=== PATIENT | female | born 1940 | race African-American/Black ===

== ENCOUNTER 2017-05-10 01:56 | Inpatient (IN) | payer MEDICARE, MEDICAID ==
[2017-05-10] VITALS (7 sets, daily range): BP systolic 120–163; BP diastolic 50–72
[~2017-05-10] VITALS: Ht 162.6 cm; Wt 79.4 kg
[~2017-05-10 01:56] MED LIST: AMLODIPINE BESYL5 MG ORAL; ARICEPT5 MG ORAL; CYMBALTA60 MG ORAL; FLORANEX TABLE1 EAC1 PO; GABAPENTIN300 MG ORAL; METOPROLOL TART25 MG ORAL
[2017-05-10] MEDS ORDERED: Pantoprazole Inj IVP ONE (02:00)
--- NOTE | 2017-05-10 02:07 | Emergency Room Report ---
History of Present Illness General Chief Complaint: Vomiting Source: Medical Record, EMS Present Illness HPI HPI limited d/t patient's known dementia Per EMS/SNF, patient with coffee ground emesis today Patient denies knowledge of this Denies abd pain, dark stool, blood in stool Has no complaints Allergies: Coded Allergies: SULFONYLUREAS (Verified Allergy, Mild, 07/24/16) DIAZEPAM (Unverified Allergy, Unknown, 07/24/16) SULFA (SULFONAMIDE ANTIBIOTICS) (Unverified Allergy, Unknown, 07/24/16) Patient History Limited by: age, medical condition Past Medical History: DM, HTN, dementia Past Surgical History: unable to obtain Pertinent Family History: unable to obtain Social History: Denies: smoking, alcohol use, drug use Now: No Immunizations: UTD Reviewed Nursing Documentation: PMH: Agreed, PSxH: Agreed Nursing Documentation-PMH Hx Cardiac Problems: Yes Hx Hypertension: Yes Hx Asthma: No Hx Cancer: Yes - MULTIPLE MYELOMA Hx Gastrointestinal Problems: Yes - GTUBE History Of Psychiatric Problem: Yes - DEMENTIA,DEPRESSION,SCHIZO Hx Neurological Problems: Yes Hx Dementia: Yes Review of Systems All Other Systems: negative except mentioned in HPI Physical Exam Vital Signs Date Time Temp Pulse Resp B/P (MAP) Pulse Ox O2 Delivery O2 Flow Rate FiO2 05/10/17 01:44 97.9 78 16 140/82 97 Room Air Sp02 EP Interpretation: reviewed, normal General Appearance: normal inspection, well appearing, no apparent distress, alert, GCS 15, non-toxic Head: normocephalic, atraumatic Eyes: bilateral eye PERRL, bilateral eye EOMI ENT: normal ENT inspection, hearing grossly normal, normal voice Neck: normal inspection, full range of motion, supple, no bony tend Respiratory: normal inspection, lungs clear, normal breath sounds, no respiratory distress, no retraction, no wheezing Cardiovascular #1: regular rate, rhythm, no edema Gastrointestinal: normal inspection, normal bowel sounds, non tender, soft, no guarding, no hernia Genitourinary: no CVA tenderness Musculoskeletal: normal inspection, back normal, normal range of motion, Zulay' s Sign negative Neurologic: normal inspection, alert, oriented x3, responsive, farm hand III-XII nml as tested, motor strength/tone normal, speech normal Psychiatric: normal inspection, judgement/insight normal, mood/affect normal Skin: normal inspection, normal color, no rash Lymphatic: normal inspection Medical Decision Making Medicare Attestation I Christel Rodriguez MD hereby attest that the medical record entry for date of service, 05/10/17 accurately reflects signatures/notations that I made in my capacity as MD when I treated/diagnosed the above listed Medicare beneficiary. I attest that this information is true, accurate and complete to the best of my knowledge. I understand that any falsification, omission, or concealment of material fact may subject me to administrative, civil, or criminal liability. This patient warrants hospital admission for extreme of age and has a condition that cannot be treated as outpatient. Diagnostic Impression: Primary Impression: Coffee ground emesis ER Course Alleged coffee-ground emesis from SNF VSS. Afebrile No emesis or hematemesis here Abd soft, NT/ND Labs: No leuks. H&h stable. Platelets normal CXR no PNA, infiltrate IV Protonix given in ED Endorsed for med/surg admit to Dr Limon at 332am EKG Diagnostic Results Rate: normal Rhythm: NSR ST Segments: no acute changes ASA given to the pt in ED: No Rhythm Strip Diag. Results EP Interpretation: yes Rate: 86 Rhythm: NSR, no PVC's, no ectopy Last Vital Signs Date Time Temp Pulse Resp B/P (MAP) Pulse Ox O2 Delivery O2 Flow Rate FiO2 05/10/17 01:44 97.9 78 16 140/82 97 Room Air Status: improved Disposition: ADMITTED INPATIENT Condition: Serious CHRISTEL RODRIGUEZ M.D. May 10, 2017 02:07
[2017-05-10 02:59] LABS: EOSINOPHILS % (AUTO) 1.4 % (0.0-3.0); LYMPHOCYTES % (AUTO) 25.6 % (20.0-45.0); MEAN CORPUSCULAR HEMOGLOBIN 27.5 PG (27.0-31.0); MEAN CORPUSCULAR HGB CONC 31.3 G/DL (32.0-36.0); MEAN CORPUSCULAR VOLUME 88 FL (80-99); MONOCYTES % (AUTO) 8.7 % (1.0-10.0); NEUTROPHILS % (AUTO) 63.4 % (45.0-75.0); PLATELET COUNT 256 K/UL (150-450); RED BLOOD COUNT 5.01 M/UL (4.20-5.40); RED CELL DISTRIBUTION WIDTH 15.3 % (11.6-14.8); WHITE BLOOD COUNT 6.9 K/UL (4.8-10.8)
[2017-05-10 03:17] LABS: ALANINE AMINOTRANSFERASE 9 U/L (3-33); ANION GAP 19 (5-15); ASPARTATE AMINO TRANSFERASE 21 U/L (5-40); CALCIUM 9.8 mg/dL (8.6-10.2); CARBON DIOXIDE 23 mEQ/L (20-30); CHLORIDE 102 mEQ/L (98-107); CREATININE 0.7 mg/dL (0.5-0.9); HEMOLYSIS 4; LIPASE 8 U/L (< 60); POTASSIUM 3.4 mEQ/L (3.4-4.9); SODIUM 144 mEQ/L (135-145)
[2017-05-10 03:18] LABS: INR 1.2 (0.9-1.1); PROTHROMBIN TIME 12.9 SEC (9.30-11.50)
[2017-05-10] MEDS ORDERED: RISPERDAL0.25 MG ORAL (03:45)
[2017-05-10] MEDS ORDERED: ZOLOFT25 MG ORAL (03:45)
[2017-05-10 05:51] LABS: KETONES,URINE 4+ (NEGATIVE); LEUKOCYTE ESTERASE ,URINE 3+ (NEGATIVE); NITRITE,URINE NEGATIVE (NEGATIVE); PH,URINE 6 (4.5-8.0); PROTEIN,URINE 2+ (NEGATIVE); UROBILINOGEN,URINE 1 MG/DL (0.0-1.0)
[2017-05-10 05:59] LABS: APPEARANCE,URINE CLOUDY; BACTERIA,URINE FEW /HPF; SQUAMOUS EPITHELIAL CELL,UR MODERATE /LPF (NONE/OCC); WBC,URINE TNTC /HPF (0 - 2)
[2017-05-10 06:00] LABS: ICTOTEST NEGATIVE; YEAST,URINE MODERATE /HPF
--- NOTE | 2017-05-10 11:26 | Diagnostic Imaging Report ---
Indication: Dyspnea Comparison: 07/25/16 A single view chest radiograph was obtained. Findings: Right chest port again noted. Cardiomegaly is stable. Mild basilar densities are present probably atelectasis. Lung volumes are low bilaterally. In pression: Suspected basilar atelectasis. Followup recommended
[2017-05-10] MEDS: Donepezil 5mg Tab ORAL SCH (11:40)
[2017-05-10] MEDS: DULoxetine 30mg cap ORAL SCH (11:40)
[2017-05-10] MEDS: Metoprolol Tartrate 12.5mg TAB ORAL SCH (11:41)
--- NOTE | 2017-05-10 11:41 | Diagnostic Imaging Report ---
Indication: Abdominal pain Comparison: None Single view of the abdomen obtained Findings: Bowel gas pattern is nonspecific. No mass, ectopic calcifications, or abnormal gas collections are identified. The bones are osteopenic. Lumbar laminectomy noted at multiple levels. Sacroiliac and bilateral hip joint osteoarthritis noted.. Impression: No acute findings
--- NOTE | 2017-05-10 13:24 | History and Physical ---
History of Present Illness General Date patient seen: May 10, 2017 Time patient seen: 13:24 Reason for Hospitalization: Coffee-ground emesis, blood in stool, concern for upper GI bleed Present Illness HPI 75 y/o female with pmh of HTN, pre-diabetes, dementia with psychosis, dysphagia s/p PEG tube but now removed who presents from SNF with coffee-ground emesis and blood in stool. Per custodial report, pt w/ episodes of coffee-ground emesis on day of presentation as well as some blood in stool. No reports of f/c , d/c, chest pain, SOB, abd pain, dysuria. In ED, pt HDS. Initial hgb stable at 13. Pt given protonix 80mg IV bolus. Allergies: Coded Allergies: SULFONYLUREAS (Verified Allergy, Mild, 07/24/16) DIAZEPAM (Unverified Allergy, Unknown, 07/24/16) SULFA (SULFONAMIDE ANTIBIOTICS) (Unverified Allergy, Unknown, 07/24/16) Medication History Scheduled Amlodipine Besylate* (Amlodipine Besylate*), 5 MG ORAL DAILY, (Reported) Donepezil Hcl* (Aricept*), 5 MG ORAL DAILY, (Reported) Duloxetine Hcl* (Cymbalta*), 60 MG ORAL DAILY, (Reported) Gabapentin* (Gabapentin*), 300 MG ORAL BEDTIME, (Reported) Metoprolol Tartrate* (Metoprolol Tartrate*), 6.25 MG ORAL DAILY, (Reported) Risperidone* (Risperdal*), 0.25 MG ORAL DAILY, (Reported) Sertraline Hcl* (Zoloft*), 25 MG ORAL DAILY, (Reported) Miscellaneous Medications Acidophilus/Bulgaricus (Floranex Tablet), 1 EACH PO, (Reported) Patient History History Provided By: Patient, Medical Record, EMS, PMD Healthcare decision maker Resuscitation status Advanced Directive on File unknown if PT has an advanced directives Past Medical/Surgical History Past Medical/Surgical History: (1) Pre-diabetes (2) HTN (hypertension) (3) Dementia with psychosis Family History Family History: Patient reports no known family medical history. Social History Social History: (1) lives at [facility] Review of Systems Constitutional: Reports: no symptoms Eye: Reports: no symptoms ENT: Reports: no symptoms Respiratory: Reports: no symptoms Cardiovascular: Reports: no symptoms Gastrointestinal: Reports: nausea, vomiting Genitourinary: Reports: no symptoms Musculoskeletal: Reports: no symptoms Skin: Reports: no symptoms Psychiatric: Reports: no symptoms Neurological: Reports: no symptoms Endocrine: Reports: no symptoms Hematologic/Lymphatic: Reports: no symptoms Physical Exam Physical Exam Narrative General: alert, cooperative, no distress, appears stated age Head: normocephalic, without obvious abnormality, atraumatic Eyes: conjunctivae/corneas clear. PERRL, EOM's intact Throat: lips, mucosa, and tongue normal. MMM Neck: supple, symmetrical, trachea midline, and no JVD Lungs: clear to auscultation bilaterally Heart: regular rate and rhythm, S1, S2 normal, no murmur, click, rub or gallop Abdomen: soft, non-tender, non-distended, bowel sounds normal; no masses or organomegaly Extremities: extremities normal, atraumatic, no cyanosis or edema Pulses: 2+ and symmetric Skin: skin color, texture, turgor normal; no rashes or lesions Neurologic: grossly normal, no focal deficits Last 24 Hour Vital Signs Date Time Temp Pulse Resp B/P (MAP) Pulse Ox O2 Delivery O2 Flow Rate FiO2 05/10/17 11:41 91 140/68 05/10/17 11:41 91 140/68 05/10/17 08:00 97.9 91 18 140/68 98 Room Air 05/10/17 06:37 98.6 90 12 120/50 97 Room Air 05/10/17 06:32 90 12 120/50 97 Room Air 05/10/17 05:06 98.6 87 16 151/66 99 Room Air 05/10/17 03:16 98.9 94 15 163/55 99 Room Air 05/10/17 01:44 97.9 78 16 140/82 97 Room Air Intake and Output 05/10/17 05/11/17 19:00 07:00 # Bowel Movements 1 Laboratory Tests Test 05/10/17 02:41 05/10/17 05:50 White Blood Count 6.9 K/UL (4.8-10.8) Red Blood Count 5.01 M/UL (4.20-5.40) Hemoglobin 13.8 G/DL (12.0-16.0) Hematocrit 44.2 % (37.0-47.0) Mean Corpuscular Volume 88 FL (80-99) Mean Corpuscular Hemoglobin 27.5 PG (27.0-31.0) Mean Corpuscular Hemoglobin Concent 31.3 G/DL (32.0-36.0) L Red Cell Distribution Width 15.3 % (11.6-14.8) H Platelet Count 256 K/UL (150-450) Mean Platelet Volume 6.0 FL (6.5-10.1) L Neutrophils (%) (Auto) 63.4 % (45.0-75.0) Lymphocytes (%) (Auto) 25.6 % (20.0-45.0) Monocytes (%) (Auto) 8.7 % (1.0-10.0) Eosinophils (%) (Auto) 1.4 % (0.0-3.0) Basophils (%) (Auto) 1.0 % (0.0-2.0) Prothrombin Time 12.9 SEC (9.30-11.50) H Prothromb Time International Ratio 1.2 (0.9-1.1) H Activated Partial Thromboplast Time 25 SEC (23-33) Sodium Level 144 mEQ/L (135-145) Potassium Level 3.4 mEQ/L (3.4-4.9) Chloride Level 102 mEQ/L (98-107) Carbon Dioxide Level 23 mEQ/L (20-30) Anion Gap 19 (5-15) H Blood Urea Nitrogen 13 mg/dL (7-23) Creatinine 0.7 mg/dL (0.5-0.9) Estimat Glomerular Filtration Rate mL/min (>60) Glucose Level 87 mg/dL (74-106) Calcium Level 9.8 mg/dL (8.6-10.2) Total Bilirubin 0.4 mg/dL (0.0-1.2) Aspartate Amino Transf (AST/SGOT) 21 U/L (5-40) Alanine Aminotransferase (ALT/SGPT) 9 U/L (3-33) Alkaline Phosphatase 68 U/L (35-104) Total Protein 7.0 g/dL (6.6-8.7) Albumin 3.6 g/dL (3.5-5.2) Globulin 3.4 g/dL Albumin/Globulin Ratio 1.0 (1.0-2.7) Lipase 8 U/L (< 60) Urine Color Yellow Urine Appearance Cloudy Urine pH 6 (4.5-8.0) Urine Specific [place] 1.025 (1.005-1.035) Urine Protein 2+ (NEGATIVE) H Urine Glucose (UA) Negative (NEGATIVE) Urine Ketones 4+ (NEGATIVE) H Urine Occult Blood 3+ (NEGATIVE) H Urine Nitrite Negative (NEGATIVE) Urine Bilirubin 1+ (NEGATIVE) H Urine Ictotest Negative Urine Urobilinogen 1 MG/DL (0.0-1.0) H Urine Leukocyte Esterase 3+ (NEGATIVE) H Urine RBC 2-4 /HPF (0 - 2) H Urine WBC Tntc /HPF (0 - 2) H Urine Squamous Epithelial Cells Moderate /LPF (NONE/OCC) H Urine Bacteria Few /HPF (NONE) Urine Yeast Moderate /HPF (NONE) H Height (Feet): 5 Height (Inches): 4.00 Weight (Pounds): 175 Medications Current Medications Medications (Trade) Dose Ordered Sig/Balaji Route PRN Reason Start Time Stop Time Status Last Admin Dose Admin Amlodipine Besylate (Norvasc) 5 mg DAILY ORAL 05/10/17 09:00 06/09/17 08:59 05/10/17 11:41 Chlorhexidine Gluconate (Yane-Hex 2%) 1 applic DAILY TOPIC 05/10/17 21:00 06/09/17 20:59 Donepezil HCl (Aricept) 5 mg DAILY ORAL 05/10/17 09:00 06/09/17 08:59 05/10/17 11:40 Duloxetine HCl (Cymbalta) 60 mg DAILY ORAL 05/10/17 09:00 06/09/17 08:59 05/10/17 11:40 Gabapentin (Neurontin) 300 mg BEDTIME ORAL 05/10/17 21:00 06/09/17 20:59 Metoprolol Tartrate (Lopressor) 6.25 mg DAILY ORAL 05/10/17 09:00 06/09/17 08:59 05/10/17 11:41 Pantoprazole (Protonix) 40 mg EVERY 12 HOURS ORAL 05/10/17 21:00 06/09/17 20:59 Risperidone (RisperDAL) 0.25 mg DAILY ORAL 05/10/17 09:00 06/09/17 08:59 05/10/17 11:41 Sertraline HCl (Zoloft) 25 mg BEDTIME ORAL 05/10/17 21:00 06/09/17 20:59 Sodium Chloride 1,000 ml @ 75 mls/hr [id number] IV 05/10/17 09:16 06/09/17 09:15 05/10/17 09:55 Assessment/Plan Problem List: (1) Blood in stool ICD Codes: K92.1 - Melena SNOMED: 84574433, 613812763 (2) Coffee ground emesis ICD Codes: K92.0 - Hematemesis SNOMED: 599563960, 31298927 (3) HTN (hypertension) ICD Codes: I10 - Essential (primary) hypertension SNOMED: 23382471 (4) Dementia with psychosis ICD Codes: F03.91 - Unspecified dementia with behavioral disturbance SNOMED: 01943641, 03552653 (5) Pre-diabetes ICD Codes: R73.03 - Prediabetes SNOMED: 824249810 Status: stable Assessment/Plan Concern for upper GI bleed given coffee-ground emesis and blood in stool Admit inpt GI consulted NPO pending GI eval IVFs Type and screen Trend cbc, transfuse for hgb<7.5 or active bleeding PPI BID Check FOBT Cont SNF meds Supportive care DVT Prophylaxis: SCD Code Status: Full Hospital Classification Declaration: Based on this initial evaluation, and depending on the patient's clinical course, I anticipate that this patient will require hospitalization for 2-3 days for concern for uppger GI bleed and close respiratory/hemodynamic monitoring. Disposition: Once the patient is stable to leave the hospital, I anticipate the patient will likely be discharged to the following environment: back to SNF I spent 70 minutes on this patient's case, and 36 minutes were dedicated to counseling and/or care coordination. Discussed with patient/family, nursing staff, SW/CM, ED physician, GI regarding clinical status, treatment course, and disposition planning. Time of note may not reflect time of encounter. Marva Nagy M.D. May 10, 2017 13:24
[2017-05-10 15:40] LABS: BASOPHILS % (AUTO) 1.4 % (0.0-2.0); EOSINOPHILS % (AUTO) 1.4 % (0.0-3.0); LYMPHOCYTES % (AUTO) 30.9 % (20.0-45.0); MEAN CORPUSCULAR HEMOGLOBIN 27.1 PG (27.0-31.0); MEAN CORPUSCULAR HGB CONC 30.8 G/DL (32.0-36.0); MEAN CORPUSCULAR VOLUME 88 FL (80-99); MEAN PLATELET VOLUME 6.5 FL (6.5-10.1); MONOCYTES % (AUTO) 9.7 % (1.0-10.0); NEUTROPHILS % (AUTO) 56.5 % (45.0-75.0); PLATELET COUNT 256 K/UL (150-450); RED BLOOD COUNT 4.86 M/UL (4.20-5.40); RED CELL DISTRIBUTION WIDTH 15.6 % (11.6-14.8); WHITE BLOOD COUNT 6.1 K/UL (4.8-10.8)
[2017-05-10] MEDS ORDERED: 1/2 NS 1000ml IV ONE (16:25)
[2017-05-10] MEDS: Sertraline 50mg tab ORAL SCH (20:19)
[2017-05-10] MEDS: Dyna-Hex 2% Top Sol 2oz TOPIC SCH (20:19)
--- NOTE | 2017-05-10 21:00 | Consultation ---
DATE OF CONSULTATION: 05/10/2017 CONSULTING PHYSICIAN: Jesu Teran M.D. ATTENDING PHYSICIAN: Jordon Paul M.D. REFERRING PHYSICIAN: Jordon Paul M.D. CHIEF COMPLAINT: Coffee-ground emesis. History Of Present Illness: This is a pleasant 76-year-old shelter patient with severe dementia, who was transferred to the hospital with "diagnosis of coffee-ground emesis." The patient unfortunately has severe dementia and is a very poor historian. If I ask what do you know or why are you in the hospital, she states no. I asked her if she remembered vomiting, she states no. She does not remember anything. PAST MEDICAL HISTORY: 1. Severe dementia. 2. Hypertension. 3. History of dysphagia, requiring G-tube, which now is removed. 4. History of neuropathy. 5. Prediabetes. 6. Schizophrenia. ALLERGIES: Diazepam and sulfa. MEDICATIONS: Please see medication reconciliation list. Social History: The patient currently lives in a shelter. No recent tobacco, alcohol, or illicit drug abuse. PAST SURGICAL HISTORY: Unknown. According to chart, none. REVIEW OF SYSTEMS: Limited given the patient's poor mental status. PHYSICAL EXAMINATION: Vital Signs: Temperature 98.6, pulse 90, respirations 12, and blood pressure 120/58. HEENT: Normocephalic and atraumatic. Sclerae anicteric. NECK: Supple. No lymphadenopathy. Cardiovascular: Regular rate and rhythm. Plus S1 and S2. No obvious murmur. LUNGS: Clear to auscultation bilaterally. Abdomen: soft and nontender. No rebound. No guarding. No peritoneal sign. There is an old G-tube site in the left upper quadrant, which is closed. EXTREMITIES: No cyanosis, no clubbing, no edema. Laboratory Data: White count 6.9, hemoglobin 13, hematocrit 44, and platelet count 256,000. Assessment And Plan: This is a 76-year-old female, admitted to the hospital with coffee-ground emesis. At this time, there is no obvious gastrointestinal bleeding. Her hemoglobin is 13.8. I plan to start the patient on diet, start the patient on Protonix for "possible gastrointestinal bleeding," and send the stool for occult blood. If the stool occult blood comes back positive and the patient is having drop in hemoglobin and hematocrit, we will consider doing endoscopy on Friday. Meanwhile, the patient is to be on soft 1800 ADA diet. We will get hemoglobin A1c because the patient has history of prediabetes and we do not know if she actually has diabetes or not. We are also going to order KUB to rule out stool impaction and severe constipation as a cause of vomiting. Of note, the patient had normal liver function tests and lipase at the time of admission. I want to thank, Dr. Paul, for this kind referral. Jesu Teran M.D. DR: ADELAIDE JOB#: [id number] CC: Jordon Paul M.D.; Fax#: [phone]
[2017-05-11] VITALS: BP 149/71
[2017-05-11 04:00] VITALS: BP 152/68
[2017-05-11 08:15] VITALS: BP 155/68
[2017-05-11 08:32] LABS: BASOPHILS % (AUTO) 1.2 % (0.0-2.0); LYMPHOCYTES % (AUTO) 23.2 % (20.0-45.0); MEAN CORPUSCULAR HEMOGLOBIN 27.7 PG (27.0-31.0); MEAN CORPUSCULAR HGB CONC 31.5 G/DL (32.0-36.0); MEAN CORPUSCULAR VOLUME 88 FL (80-99); MEAN PLATELET VOLUME 6.4 FL (6.5-10.1); MONOCYTES % (AUTO) 9.3 % (1.0-10.0); NEUTROPHILS % (AUTO) 65.3 % (45.0-75.0); PLATELET COUNT 230 K/UL (150-450); RED BLOOD COUNT 4.73 M/UL (4.20-5.40); RED CELL DISTRIBUTION WIDTH 15.3 % (11.6-14.8); WHITE BLOOD COUNT 6.5 K/UL (4.8-10.8)
[2017-05-11 08:51] LABS: ANION GAP 19 (5-15); CALCIUM 9.3 mg/dL (8.6-10.2); CARBON DIOXIDE 22 mEQ/L (20-30); CHLORIDE 99 mEQ/L (98-107); CREATININE 0.8 mg/dL (0.5-0.9); HEMOLYSIS 26; POTASSIUM 3.2 mEQ/L (3.4-4.9); SODIUM 140 mEQ/L (135-145)
[2017-05-11] MEDS: Dyna-Hex 2% Top Sol 2oz TOPIC SCH (09:07)
[2017-05-11] MEDS: Donepezil 5mg Tab ORAL SCH (09:09)
[2017-05-11] MEDS: DULoxetine 30mg cap ORAL SCH (09:10)
[2017-05-11 09:11] LABS: HEMOGLOBIN A1C 5.8 % (< 6.0)
[2017-05-11] MEDS: Metoprolol Tartrate 12.5mg TAB ORAL SCH (09:11)
--- NOTE | 2017-05-11 09:21 | General Progress Note ---
Assessment/Plan Problem List: (1) HTN (hypertension) ICD Codes: I10 - Essential (primary) hypertension SNOMED: 53549813 (2) Coffee ground emesis ICD Codes: K92.0 - Hematemesis SNOMED: 939851946, 91237807 (3) Dementia with psychosis ICD Codes: F03.91 - Unspecified dementia with behavioral disturbance SNOMED: 48111293, 64062606 Assessment/Plan no recurrent vomiting stable H&H stool ob pending GI procedures on hold Subjective ROS Limited/Unobtainable: Yes Allergies: Coded Allergies: SULFONYLUREAS (Verified Allergy, Mild, 07/24/16) DIAZEPAM (Unverified Allergy, Unknown, 07/24/16) SULFA (SULFONAMIDE ANTIBIOTICS) (Unverified Allergy, Unknown, 07/24/16) Subjective no recurrent N/V poor po intake Objective Last 24 Hour Vital Signs Date Time Temp Pulse Resp B/P (MAP) Pulse Ox O2 Delivery O2 Flow Rate FiO2 05/11/17 09:11 87 155/68 05/11/17 09:09 87 155/68 05/11/17 08:15 97.9 87 20 155/68 97 Room Air 05/11/17 04:00 98.2 89 20 152/68 97 Room Air 05/11/17 00:00 98.0 93 20 149/71 99 Room Air 05/10/17 20:14 97.7 96 20 135/62 99 Room Air 05/10/17 16:09 98.7 98 21 138/61 96 Room Air 05/10/17 12:00 97.8 106 18 126/72 99 Room Air 05/10/17 11:41 91 140/68 05/10/17 11:41 91 140/68 Laboratory Tests 05/10/17 15:20: White Blood Count 6.1, Red Blood Count 4.86, Hemoglobin 13.2, Hematocrit 42.8, Mean Corpuscular Volume 88, Mean Corpuscular Hemoglobin 27.1, Mean Corpuscular Hemoglobin Concent 30.8L, Red Cell Distribution Width 15.6H, Platelet Count 256 , Mean Platelet Volume 6.5, Neutrophils (%) (Auto) 56.5, Lymphocytes (%) (Auto) 30.9, Monocytes (%) (Auto) 9.7, Eosinophils (%) (Auto) 1.4, Basophils (%) (Auto ) 1.4 05/10/17 23:15: Stool Occult Blood [Pending] 05/11/17 06:30: White Blood Count 6.5, Red Blood Count 4.73, Hemoglobin 13.1, Hematocrit 41.7, Mean Corpuscular Volume 88, Mean Corpuscular Hemoglobin 27.7, Mean Corpuscular Hemoglobin Concent 31.5L, Red Cell Distribution Width 15.3H, Platelet Count 230 , Mean Platelet Volume 6.4L, Neutrophils (%) (Auto) 65.3, Lymphocytes (%) (Auto ) 23.2, Monocytes (%) (Auto) 9.3, Eosinophils (%) (Auto) 1.0, Basophils (%) ( Auto) 1.2, Sodium Level 140, Potassium Level 3.2L, Chloride Level 99, Carbon Dioxide Level 22, Anion Gap 19H, Blood Urea Nitrogen 9, Creatinine 0.8, Estimat Glomerular Filtration Rate , Glucose Level 87, Hemoglobin A1c 5.8, Calcium Level 9.3, Carcinoembryonic Antigen 1.4 Height (Feet): 5 Height (Inches): 4.00 Weight (Pounds): 175 General Appearance: alert EENT: normal ENT inspection Neck: supple Cardiovascular: normal rate Respiratory/Chest: lungs clear Abdomen: normal bowel sounds, non tender, soft Extremities: non-tender JAZZY MILLER May 11, 2017 09:21
[2017-05-11] MEDS ORDERED: 1/2 NS 1000ml IV ONE ×2 (10:07→15:47)
[2017-05-11 12:00] VITALS: BP 131/74
[2017-05-11] MEDS: 1/2NS w/KCl 20mEq 1000ml 1,000 ML IV SCH (13:01)
[2017-05-11 15:47] VITALS: BP 151/73
--- NOTE | 2017-05-11 15:54 | Cardiology Report ---
APPROVED REPORT EKG Measurement Heart [id number] OR 124P17 [id number] Normal sinus rhythm T wave abnormality, consider anterior ischemia Abnormal ECG
[2017-05-11 20:00] VITALS: BP 139/60
[2017-05-11] MEDS: Sertraline 50mg tab ORAL SCH (20:17)
--- NOTE | 2017-05-11 21:00 | General Progress Note ---
Assessment/Plan Problem List: (1) Blood in stool ICD Codes: K92.1 - Melena SNOMED: 06172067, 073922901 (2) Coffee ground emesis ICD Codes: K92.0 - Hematemesis SNOMED: 949522910, 64990604 (3) HTN (hypertension) ICD Codes: I10 - Essential (primary) hypertension SNOMED: 42441818 (4) Dementia with psychosis ICD Codes: F03.91 - Unspecified dementia with behavioral disturbance SNOMED: 83505636, 01152179 (5) Pre-diabetes ICD Codes: R73.03 - Prediabetes SNOMED: 566897442 Status: stable Assessment/Plan Concern for upper GI bleed given coffee-ground emesis and blood in stool GI consulted Given no further bleeding noted, pt's diet advanced from to regular per GI IVFs Trend cbc, transfuse for hgb<7.5 or active bleeding PPI BID Check FOBT Cont SNF meds Supportive care Possible d/c back to SNF tomorrow if remains hemodynamically stable DVT Prophylaxis: SCD Code Status: Full Hospital Classification Declaration: Based on this initial evaluation, and depending on the patient's clinical course, I anticipate that this patient will require hospitalization for1-2 days for concern for uppger GI bleed and close respiratory/hemodynamic monitoring. Disposition: Once the patient is stable to leave the hospital, I anticipate the patient will likely be discharged to the following environment: back to SNF I spent 40 minutes on this patient's case, and 22 minutes were dedicated to counseling and/or care coordination. Discussed with patient/family, nursing staff, SW/CM, GI regarding clinical status, treatment course, and disposition planning. D/w GI re EGD on hold given no further bleeding Time of note may not reflect time of encounter. Subjective Date patient seen: May 11, 2017 Time patient seen: 12:50 ROS Limited/Unobtainable: Yes Constitutional: Reports: no symptoms HEENT: Reports: no symptoms Cardiovascular: Reports: no symptoms Respiratory: Reports: no symptoms Gastrointestinal/Abdominal: Reports: no symptoms Genitourinary: Reports: no symptoms Neurologic/Psychiatric: Reports: no symptoms Endocrine: Reports: no symptoms Hematologic/Lymphatic: Reports: no symptoms Allergies: Coded Allergies: SULFONYLUREAS (Verified Allergy, Mild, 07/24/16) DIAZEPAM (Unverified Allergy, Unknown, 07/24/16) SULFA (SULFONAMIDE ANTIBIOTICS) (Unverified Allergy, Unknown, 07/24/16) Subjective No acute o/n events Hgb stable HDS No further blood in stool or coffee ground emesis noted Tolerating diet Pt doing well. Denies f/c, n/v, d/c, chest pain, SOB, abd pain Objective Last 24 Hour Vital Signs Date Time Temp Pulse Resp B/P (MAP) Pulse Ox O2 Delivery O2 Flow Rate FiO2 05/11/17 15:47 97.3 86 18 151/73 98 Room Air 05/11/17 12:00 97.7 85 18 131/74 96 Room Air 05/11/17 09:11 87 155/68 05/11/17 09:09 87 155/68 05/11/17 08:15 97.9 87 20 155/68 97 Room Air 05/11/17 04:00 98.2 89 20 152/68 97 Room Air 05/11/17 00:00 98.0 93 20 149/71 99 Room Air Intake and Output 05/11/17 05/12/17 19:00 07:00 Intake Total 731.25 ml Balance 731.25 ml IV Total 731.25 ml # Bowel Movements 1 Laboratory Tests 05/10/17 23:15: Stool Occult Blood Negative 05/11/17 06:30: White Blood Count 6.5, Red Blood Count 4.73, Hemoglobin 13.1, Hematocrit 41.7, Mean Corpuscular Volume 88, Mean Corpuscular Hemoglobin 27.7, Mean Corpuscular Hemoglobin Concent 31.5L, Red Cell Distribution Width 15.3H, Platelet Count 230 , Mean Platelet Volume 6.4L, Neutrophils (%) (Auto) 65.3, Lymphocytes (%) (Auto ) 23.2, Monocytes (%) (Auto) 9.3, Eosinophils (%) (Auto) 1.0, Basophils (%) ( Auto) 1.2, Sodium Level 140, Potassium Level 3.2L, Chloride Level 99, Carbon Dioxide Level 22, Anion Gap 19H, Blood Urea Nitrogen 9, Creatinine 0.8, Estimat Glomerular Filtration Rate , Glucose Level 87, Hemoglobin A1c 5.8, Calcium Level 9.3, Magnesium Level 1.5L, Carcinoembryonic Antigen 1.4 Height (Feet): 5 Height (Inches): 4.00 Weight (Pounds): 175 Objective General: alert, cooperative, no distress, appears stated age Head: normocephalic, without obvious abnormality, atraumatic Eyes: conjunctivae/corneas clear. PERRL, EOM's intact Throat: lips, mucosa, and tongue normal. MMM Neck: supple, symmetrical, trachea midline, and no JVD Lungs: clear to auscultation bilaterally Heart: regular rate and rhythm, S1, S2 normal, no murmur, click, rub or gallop Abdomen: soft, non-tender, non-distended, bowel sounds normal; no masses or organomegaly Extremities: extremities normal, atraumatic, no cyanosis or edema Pulses: 2+ and symmetric Skin: skin color, texture, turgor normal; no rashes or lesions Neurologic: grossly normal, no focal deficits Marva Nagy M.D. May 11, 2017 21:00
[2017-05-12] MEDS: 1/2NS w/KCl 20mEq 1000ml 1,000 ML IV SCH ×3 (01:20→19:02)
[2017-05-12 04:00] VITALS: BP 142/61
[2017-05-12 06:46] LABS: BASOPHILS % (AUTO) 0.8 % (0.0-2.0); EOSINOPHILS % (AUTO) 1.7 % (0.0-3.0); LYMPHOCYTES % (AUTO) 27.6 % (20.0-45.0); MEAN CORPUSCULAR HEMOGLOBIN 28.7 PG (27.0-31.0); MEAN CORPUSCULAR HGB CONC 32.6 G/DL (32.0-36.0); MEAN CORPUSCULAR VOLUME 88 FL (80-99); MEAN PLATELET VOLUME 6.5 FL (6.5-10.1); MONOCYTES % (AUTO) 11.1 % (1.0-10.0); NEUTROPHILS % (AUTO) 58.8 % (45.0-75.0); PLATELET COUNT 233 K/UL (150-450); RED BLOOD COUNT 4.22 M/UL (4.20-5.40); RED CELL DISTRIBUTION WIDTH 15.4 % (11.6-14.8); WHITE BLOOD COUNT 5.6 K/UL (4.8-10.8)
[2017-05-12 07:22] LABS: ANION GAP 15 (5-15); CALCIUM 10.4 mg/dL (8.6-10.2); CARBON DIOXIDE 23 mEQ/L (20-30); CHLORIDE 101 mEQ/L (98-107); CREATININE 0.6 mg/dL (0.5-0.9); HEMOLYSIS 2; POTASSIUM 3.6 mEQ/L (3.4-4.9); SODIUM 139 mEQ/L (135-145)
[2017-05-12 08:00] VITALS: BP 140/70
--- NOTE | 2017-05-12 09:40 | GI Progress Note ---
Assessment/Plan Problems: (1) Dementia with psychosis ICD Codes: F03.91 - Unspecified dementia with behavioral disturbance SNOMED: 09524342, 32596755 (2) Gastrointestinal bleed ICD Codes: K92.2 - Gastrointestinal hemorrhage, unspecified SNOMED: 95873631 (3) Coffee ground emesis ICD Codes: K92.0 - Hematemesis SNOMED: 349493652, 18513687 (4) S/P percutaneous endoscopic gastrostomy (PEG) tube placement Assessment & Plan: removed ICD Codes: Z93.1 - Gastrostomy status SNOMED: 918183844 Status: stable Status Narrative Discussed with Dr. Teran. Assessment/Plan OB stool negative no recurrent vomiting stable H&H ok for DC per GI standpoint monitor H&H, prn transfusions ppi fu labs outpatient GI procedures The patient was seen and examined at bedside and all new and available data was reviewed in the patients chart. I agree with the above findings, impression and plan. (Patient seen earlier today. Signature stamp does not reflect patient encounter time.). -Jesu Teran MD Subjective Gastrointestinal/Abdominal: Reports: no symptoms Objective Last 24 Hour Vital Signs Date Time Temp Pulse Resp B/P (MAP) Pulse Ox O2 Delivery O2 Flow Rate FiO2 05/12/17 08:00 97.5 79 20 140/70 98 Room Air 05/12/17 04:00 97.9 84 18 142/61 98 Room Air 05/11/17 20:00 97.9 97 19 139/60 100 Room Air 05/11/17 15:47 97.3 86 18 151/73 98 Room Air 05/11/17 12:00 97.7 85 18 131/74 96 Room Air Laboratory Tests Test 05/12/17 04:45 White Blood Count 5.6 K/UL (4.8-10.8) Red Blood Count 4.22 M/UL (4.20-5.40) Hemoglobin 12.1 G/DL (12.0-16.0) Hematocrit 37.2 % (37.0-47.0) Mean Corpuscular Volume 88 FL (80-99) Mean Corpuscular Hemoglobin 28.7 PG (27.0-31.0) Mean Corpuscular Hemoglobin Concent 32.6 G/DL (32.0-36.0) Red Cell Distribution Width 15.4 % (11.6-14.8) H Platelet Count 233 K/UL (150-450) Mean Platelet Volume 6.5 FL (6.5-10.1) Neutrophils (%) (Auto) 58.8 % (45.0-75.0) Lymphocytes (%) (Auto) 27.6 % (20.0-45.0) Monocytes (%) (Auto) 11.1 % (1.0-10.0) H Eosinophils (%) (Auto) 1.7 % (0.0-3.0) Basophils (%) (Auto) 0.8 % (0.0-2.0) Sodium Level 139 mEQ/L (135-145) Potassium Level 3.6 mEQ/L (3.4-4.9) Chloride Level 101 mEQ/L (98-107) Carbon Dioxide Level 23 mEQ/L (20-30) Anion Gap 15 (5-15) Blood Urea Nitrogen 6 mg/dL (7-23) L Creatinine 0.6 mg/dL (0.5-0.9) Estimat Glomerular Filtration Rate mL/min (>60) Glucose Level 90 mg/dL (74-106) Calcium Level 10.4 mg/dL (8.6-10.2) H Carcinoembryonic Antigen 1.1 ng/mL Height (Feet): 5 Height (Inches): 4.00 Weight (Pounds): 175 General Appearance: no apparent distress, alert Cardiovascular: normal rate Respiratory/Chest: normal breath sounds, no respiratory distress Abdominal Exam: normal bowel sounds, non tender, soft Nat Nieves N.Jory May 12, 2017 09:40 JESU TERAN May 14, 2017 10:27
[2017-05-12] MEDS: Donepezil 5mg Tab ORAL SCH (09:52)
[2017-05-12] MEDS: DULoxetine 30mg cap ORAL SCH (09:52)
[2017-05-12] MEDS: Dyna-Hex 2% Top Sol 2oz TOPIC SCH (09:54)
[2017-05-12] MEDS: Metoprolol Tartrate 12.5mg TAB ORAL SCH (10:00)
[2017-05-12 12:00] VITALS: BP 132/64
[2017-05-12] MEDS ORDERED: PROTONIX40 MG ORAL (13:33)
[2017-05-12 16:00] VITALS: BP 153/80
[2017-05-12 20:00] VITALS: BP 158/83
[2017-05-12] MEDS: Sertraline 50mg tab ORAL SCH (20:04)
[2017-05-13] VITALS: BP 147/79
[2017-05-13 04:11] VITALS: BP 160/68
--- NOTE | 2017-05-13 06:20 | General Progress Note ---
Assessment/Plan Problem List: (1) Blood in stool ICD Codes: K92.1 - Melena SNOMED: 73162522, 905185230 (2) Coffee ground emesis ICD Codes: K92.0 - Hematemesis SNOMED: 858374771, 40478483 (3) HTN (hypertension) ICD Codes: I10 - Essential (primary) hypertension SNOMED: 71270242 (4) Dementia with psychosis ICD Codes: F03.91 - Unspecified dementia with behavioral disturbance SNOMED: 86487542, 22165904 (5) Pre-diabetes ICD Codes: R73.03 - Prediabetes SNOMED: 125716407 Status: stable Assessment/Plan Concern for upper GI bleed given coffee-ground emesis and blood in stool GI consulted Given no further bleeding noted, pt's diet advanced from to regular per GI IVFs Trend cbc, transfuse for hgb<7.5 or active bleeding PPI BID Check FOBT Cont SNF meds Supportive care Possible d/c back to SNF tomorrow if remains hemodynamically stable DVT Prophylaxis: SCD Code Status: Full Hospital Classification Declaration: Based on this initial evaluation, and depending on the patient's clinical course, I anticipate that this patient will require hospitalization for 1-2 days for concern for upper GI bleed and close respiratory/hemodynamic monitoring. Disposition: Once the patient is stable to leave the hospital, I anticipate the patient will likely be discharged to the following environment: back to SNF I spent 40 minutes on this patient's case, and 21 minutes were dedicated to counseling and/or care coordination. Discussed with patient/family, nursing staff, SW/CM, GI regarding clinical status, treatment course, and disposition planning. D/w GI re EGD on hold given no further bleeding Time of note may not reflect time of encounter. Subjective Date patient seen: May 12, 2017 Time patient seen: 12:00 ROS Limited/Unobtainable: Yes Constitutional: Reports: no symptoms HEENT: Reports: no symptoms Cardiovascular: Reports: no symptoms Respiratory: Reports: no symptoms Gastrointestinal/Abdominal: Reports: no symptoms Genitourinary: Reports: no symptoms Neurologic/Psychiatric: Reports: no symptoms Endocrine: Reports: no symptoms Hematologic/Lymphatic: Reports: no symptoms Allergies: Coded Allergies: SULFONYLUREAS (Verified Allergy, Mild, 07/24/16) DIAZEPAM (Unverified Allergy, Unknown, 07/24/16) SULFA (SULFONAMIDE ANTIBIOTICS) (Unverified Allergy, Unknown, 07/24/16) Subjective No acute o/n events Hgb downt o 12 from 13 HDS No further blood in stool or coffee-ground emesis noted Tolerating diet Pt doing well. Denies f/c, n/v, d/c, chest pain, SOB, abd pain Objective Last 24 Hour Vital Signs Date Time Temp Pulse Resp B/P (MAP) Pulse Ox O2 Delivery O2 Flow Rate FiO2 05/13/17 04:11 98.4 98 20 160/68 99 Room Air 05/13/17 00:00 98.2 82 20 147/79 98 Room Air 05/12/17 20:00 98.1 95 20 158/83 97 Room Air 05/12/17 16:00 97.0 86 20 153/80 96 Room Air 05/12/17 12:00 98.0 74 20 132/64 98 Room Air 05/12/17 10:00 79 144/71 05/12/17 09:53 79 144/71 05/12/17 08:00 97.5 79 20 140/70 98 Room Air Height (Feet): 5 Height (Inches): 4.00 Weight (Pounds): 175 Objective General: alert, cooperative, no distress, appears stated age Head: normocephalic, without obvious abnormality, atraumatic Eyes: conjunctivae/corneas clear. PERRL, EOM's intact Throat: lips, mucosa, and tongue normal. MMM Neck: supple, symmetrical, trachea midline, and no JVD Lungs: clear to auscultation bilaterally Heart: regular rate and rhythm, S1, S2 normal, no murmur, click, rub or gallop Abdomen: soft, non-tender, non-distended, bowel sounds normal; no masses or organomegaly Extremities: extremities normal, atraumatic, no cyanosis or edema Pulses: 2+ and symmetric Skin: skin color, texture, turgor normal; no rashes or lesions Neurologic: grossly normal, no focal deficits Marva Nagy M.D. May 13, 2017 06:20
[2017-05-13 06:56] VITALS: BP 157/74
[2017-05-13 08:00] VITALS: BP 151/75
[2017-05-13] MEDS: Dyna-Hex 2% Top Sol 2oz TOPIC SCH (09:25)
[2017-05-13] MEDS: Donepezil 5mg Tab ORAL SCH (09:25)
[2017-05-13] MEDS: Metoprolol Tartrate 12.5mg TAB ORAL SCH (09:26)
[2017-05-13] MEDS: DULoxetine 30mg cap ORAL SCH (09:26)
[2017-05-13] MEDS: 1/2NS w/KCl 20mEq 1000ml 1,000 ML IV SCH (09:37)
[2017-05-13 10:01] LABS: BASOPHILS % (AUTO) 1.5 % (0.0-2.0); EOSINOPHILS % (AUTO) 2.4 % (0.0-3.0); LYMPHOCYTES % (AUTO) 30.3 % (20.0-45.0); MEAN CORPUSCULAR HEMOGLOBIN 27.9 PG (27.0-31.0); MEAN CORPUSCULAR HGB CONC 31.9 G/DL (32.0-36.0); MEAN CORPUSCULAR VOLUME 87 FL (80-99); MEAN PLATELET VOLUME 6.5 FL (6.5-10.1); MONOCYTES % (AUTO) 11.5 % (1.0-10.0); NEUTROPHILS % (AUTO) 54.3 % (45.0-75.0); PLATELET COUNT 220 K/UL (150-450); RED CELL DISTRIBUTION WIDTH 15.6 % (11.6-14.8)
[2017-05-13 12:00] VITALS: BP 149/68
--- NOTE | 2017-05-13 12:30 | Discharge Summary ---
Discharge Summary Hospital Course Date of Admission May 10, 2017 at 02:22 Date of Discharge 05/13/17 Admitting Diagnosis GI bleed HPI 75 y/o female with pmh of HTN, pre-diabetes, dementia with psychosis, dysphagia s/p PEG tube but now removed who presents from SNF with coffee-ground emesis and blood in stool. Per longterm report, pt w/ episodes of coffee-ground emesis on day of presentation as well as some blood in stool. No reports of f/c , d/c, chest pain, SOB, abd pain, dysuria. In ED, pt HDS. Initial hgb stable at 13. Pt given protonix 80mg IV bolus. Consultations Gastroenterology Hospital Course Pt was admitted given concern for upper GI bleed given coffee-ground emesis and blood in stool. She was treated with protonix IV. Her hgb dropped but she did not require transfusion. She was seen by GI and EGD was deferred as no further bleeding noted. Prior to d/c, pt was HHD and tolerating PO. Discharge Medications New Medications: Pantoprazole* (Protonix*) 40 Mg Tablet.dr 40 MG ORAL DAILY for 30 Days, TAB Continued Medications: Acidophilus/Bulgaricus (Floranex Tablet) 1 Each Tablet 1 EACH PO, TAB Amlodipine Besylate* (Amlodipine Besylate*) 5 Mg Tablet 5 MG ORAL DAILY, TAB Donepezil Hcl* (Aricept*) 5 Mg Tablet 5 MG ORAL DAILY, TAB Duloxetine Hcl* (Cymbalta*) 60 Mg Capsule.dr 60 MG ORAL DAILY, CAP Gabapentin* (Gabapentin*) 300 Mg Capsule 300 MG ORAL BEDTIME, CAP Metoprolol Tartrate* (Metoprolol Tartrate*) 25 Mg Tablet 6.25 MG ORAL DAILY, TAB Risperidone* (Risperdal*) 0.25 Mg Tablet 0.25 MG ORAL DAILY, #30 TAB 0 Refills Sertraline Hcl* (Zoloft*) 25 Mg Tablet 25 MG ORAL DAILY, TAB Discharge Condition Upon Discharge: stable Discharge Disposition Patient was discharged to SNF Discharge Diagnoses: (1) Coffee ground emesis (2) Blood in stool (3) Gastrointestinal bleed (4) Hypokalemia (5) Hypomagnesemia (6) HTN (hypertension) (7) Dementia with psychosis Marva Nagy M.D. May 13, 2017 12:30
--- NOTE | 2017-05-13 12:57 | GI Progress Note ---
Assessment/Plan Problems: (1) Dementia with psychosis ICD Codes: F03.91 - Unspecified dementia with behavioral disturbance SNOMED: 19464684, 72823052 (2) Gastrointestinal bleed ICD Codes: K92.2 - Gastrointestinal hemorrhage, unspecified SNOMED: 76175841 (3) Coffee ground emesis ICD Codes: K92.0 - Hematemesis SNOMED: 912106314, 87725853 (4) S/P percutaneous endoscopic gastrostomy (PEG) tube placement Assessment & Plan: removed ICD Codes: Z93.1 - Gastrostomy status SNOMED: 188336602 Status: stable Status Narrative Discussed with Dr. Teran. Assessment/Plan OB stool negative no recurrent vomiting stable H&H ok for DC per GI standpoint monitor H&H, prn transfusions ppi fu labs outpatient GI procedures Subjective Gastrointestinal/Abdominal: Reports: no symptoms Objective Last 24 Hour Vital Signs Date Time Temp Pulse Resp B/P (MAP) Pulse Ox O2 Delivery O2 Flow Rate FiO2 05/13/17 12:00 97.5 75 20 149/68 100 Room Air 05/13/17 09:26 76 151/75 05/13/17 09:25 76 151/75 05/13/17 08:00 98.2 76 20 151/75 97 Room Air 05/13/17 06:56 157/74 05/13/17 04:11 98.4 98 20 160/68 99 Room Air 05/13/17 00:00 98.2 82 20 147/79 98 Room Air 05/12/17 20:00 98.1 95 20 158/83 97 Room Air 05/12/17 16:00 97.0 86 20 153/80 96 Room Air Laboratory Tests Test 05/13/17 09:30 White Blood Count 5.0 K/UL (4.8-10.8) Red Blood Count 4.50 M/UL (4.20-5.40) Hemoglobin 12.6 G/DL (12.0-16.0) Hematocrit 39.3 % (37.0-47.0) Mean Corpuscular Volume 87 FL (80-99) Mean Corpuscular Hemoglobin 27.9 PG (27.0-31.0) Mean Corpuscular Hemoglobin Concent 31.9 G/DL (32.0-36.0) L Red Cell Distribution Width 15.6 % (11.6-14.8) H Platelet Count 220 K/UL (150-450) Mean Platelet Volume 6.5 FL (6.5-10.1) Neutrophils (%) (Auto) 54.3 % (45.0-75.0) Lymphocytes (%) (Auto) 30.3 % (20.0-45.0) Monocytes (%) (Auto) 11.5 % (1.0-10.0) H Eosinophils (%) (Auto) 2.4 % (0.0-3.0) Basophils (%) (Auto) 1.5 % (0.0-2.0) Height (Feet): 5 Height (Inches): 4.00 Weight (Pounds): 175 General Appearance: no apparent distress, alert Cardiovascular: normal rate Respiratory/Chest: normal breath sounds, no respiratory distress Abdominal Exam: normal bowel sounds, non tender, soft Nat Nieves N.P. May 13, 2017 12:57
[2017-05-13] MEDS ORDERED: Heplock Flush 100 units/ml 3 ml syr INJ SCH (14:30)
[2017-05-13] MEDS ORDERED: Tubing IV Secondary IV ONE (15:21)
[2017-05-13] MEDS ORDERED: Heplock Flush 100 units/ml 3 ml syr IV ONE (15:30)
--- NOTE | 2017-05-23 11:18 | Discharge Summary ---
Discharge Summary Hospital Course Date of Admission May 10, 2017 at 02:22 Date of Discharge May 13, 2017 at 15:22 Admitting Diagnosis GI bleed HPI Kayla Nguyen is a 76 year old female who was admitted on May 10, 2017 at 02: 22 for Gastrointestinal Bleed Hospital Course [id number] Discharge Discharge Disposition Patient was discharged to SNF/Subacute Facility(03) Discharge Diagnoses: Maria E Mijares NP May 23, 2017 11:18
--- NOTE | 2017-05-24 06:30 | Discharge Summary 2 SIG ---
DATE OF ADMISSION: 05/10/2017 DATE OF DISCHARGE: 05/13/2017 FLAT FOLDER: Jesu Teran M.D. Brief Hospital Course: The patient is a 76-year-old female with past medical history of hypertension, prediabetes, dementia, and psychosis with dysphagia status post percutaneous endoscopic gastrostomy tube, now removed, presented from SNF with coffee-grounds emesis and blood in stool. Per care home report, the patient had episodes of coffee-ground emesis on day of presentation and was noted blood in the stool. There was no report of diarrhea or constipation. No chest pain, shortness of breath, or dysuria. On evaluation at ED, hemoglobin was stable. The patient was admitted to medical floor and was placed on NPO with IV fluids. She was given proton pump inhibitors. skilled nursing medications were resumed. She had a gastrointestinal evaluation. KUB showed no acute findings. There has been no recurrent vomiting. Hemoglobin and hematocrit have been stable. Diet was advanced. Stool OB negative. The patient was hemodynamically stable and was discharged back to care home. FINAL DIAGNOSES: 1. Blood in stool. 2. Coffee-grounds emesis. 3. Hypertension. 4. Dementia with psychosis. 5. Prediabetes. Discharge Disposition: The patient was discharged back to [facility]. DISCHARGE MEDICATIONS: Refer to medication list. Marva Nagy M.D. I have been assigned to dictate discharge summary on this account and I was not involved in the patient's management. Maria E Mijares N.P. DR: MARCE JOB#: [id number] CC: REKHA
== END 2017-05-13 15:22 | DRG 379 ==
LOC: EDBD 01:56 → EMR 02:20 → 4E 02:22 → EDBEDREQ 02:46
DX: K92.2 Gastrointestinal hemorrhage, unspecified (principal); G62.9 Polyneuropathy, unspecified; F03.90 Unspecified dementia, unspecified severity, without behavioral disturbance, psychotic disturbance, mood disturbance, and anxiety; I10 Essential (primary) hypertension; Z88.2 Allergy status to sulfonamides; Z88.8 Allergy status to other drugs, medicaments and biological substances; R73.03 Prediabetes; F20.9 Schizophrenia, unspecified
CPT/HCPCS: 36415; 71010; 74000; 80048; 80053; 81003; 82270; 82378; 82962; 83036; 83690; 83735; 85025; 85610; 85730; 86850; 86900; 86901; 87081; 87086; 93005; 99284; 99285; J8499

== ENCOUNTER 2017-06-26 13:46 | Inpatient (IN) | payer MEDICARE, MEDICAID ==
[~2017-06-26] VITALS: Ht 167.6 cm; Wt 99.8 kg
[~2017-06-26 13:46] MED LIST changes: +PROTONIX40 MG ORAL; +RISPERDAL0.25 MG ORAL; +ZOLOFT25 MG ORAL
[2017-06-26] MEDS ORDERED: Sodium Chloride 500ML 500 ML IV ONE (14:09)
[2017-06-26] MEDS ORDERED: ARICEPT5 MG ORAL (15:04)
[2017-06-26] MEDS ORDERED: COGENTIN1 MG ORAL (15:05)
[2017-06-26 15:12] LABS: BASOPHILS % (AUTO) 0.7 % (0.0-2.0); EOSINOPHILS % (AUTO) 1.4 % (0.0-3.0); HEMATOCRIT 40.5 % (37.0-47.0); LYMPHOCYTES % (AUTO) 25.3 % (20.0-45.0); MEAN CORPUSCULAR VOLUME 92 FL (80-99); MONOCYTES % (AUTO) 5.1 % (1.0-10.0); NEUTROPHILS % (AUTO) 67.5 % (45.0-75.0); PLATELET COUNT 275 K/UL (150-450); RED BLOOD COUNT 4.41 M/UL (4.20-5.40); RED CELL DISTRIBUTION WIDTH 17.4 % (11.6-14.8); WHITE BLOOD COUNT 6.7 K/UL (4.8-10.8)
[2017-06-26 15:34] LABS: ANION GAP 8 mmol/L (5-15); BLOOD UREA NITROGEN 7 mg/dL (7-18); CALCIUM 9.2 MG/DL (8.5-10.1); CARBON DIOXIDE 25 MMOL/L (21-32); CHLORIDE 107 MMOL/L (98-107); CREATININE 0.7 MG/DL (0.55-1.30); POTASSIUM 3.3 MMOL/L (3.5-5.1); SODIUM 140 MMOL/L (136-145)
--- NOTE | 2017-06-26 15:40 | Emergency Room Report ---
History of Present Illness General Chief Complaint: Generalized Weakness Source: Patient, Medical Record, EMS Present Illness HPI Patient currently stays at a residential. Patient has history of psychiatric disturbances. Patient is bedridden and has a history of bone cancer which resulted in lower extremity paralysis. Patient apparently has not been eating or drinking and has become more confused and altered and has been having hallucinations. Patient however states that she's not eating his food. Patient appears slightly dehydrated with dry mucous membranes. Patient denies any chest pain shortness breath. Patient denies any nausea vomiting diarrhea chills. No other complaints are noted. Symptoms noted to be moderate to severe.No other modifying factors. No other associated signs and symptoms. No other complaints were noted. Allergies: Coded Allergies: SULFONYLUREAS (Verified Allergy, Mild, 07/24/16) DIAZEPAM (Unverified Allergy, Unknown, 07/24/16) SULFA (SULFONAMIDE ANTIBIOTICS) (Unverified Allergy, Unknown, 07/24/16) Patient History Past Medical History: DM, HTN, CAD, psych hx, other - bone CA Past Surgical History: none Pertinent Family History: none Social History: Denies: smoking, alcohol use, drug use Social History Narrative stays at a residential Reviewed Nursing Documentation: PMH: Agreed, PSxH: Agreed Nursing Documentation-PMH Past Medical History: No History, Except For Hx Cardiac Problems: Yes - cardiac arrhythmia Hx Hypertension: Yes Hx Asthma: No Hx Diabetes: Yes - pre-diabetic Hx Cancer: Yes - Multiple Myeloma Hx Gastrointestinal Problems: Yes Hx Neurological Problems: Yes Hx Dementia: Yes - with psychosis Hx Dysphasia: Yes Review of Systems All Other Systems: negative except mentioned in HPI Physical Exam Vital Signs Date Time Temp Pulse Resp B/P (MAP) Pulse Ox O2 Delivery O2 Flow Rate FiO2 06/26/17 13:48 98.2 65 18 122/59 98 Room Air Sp02 EP Interpretation: reviewed, normal General Appearance: normal inspection, well appearing, no apparent distress, alert Head: atraumatic Eyes: bilateral eye normal inspection ENT: normal ENT inspection, hearing grossly normal, normal voice, dry mucus membranes Neck: normal inspection, full range of motion, supple, no bony tend Respiratory: normal inspection, lungs clear, normal breath sounds, no respiratory distress, no retraction, no wheezing Cardiovascular #1: regular rate, rhythm, no edema Gastrointestinal: normal inspection, normal bowel sounds, non tender, soft, no guarding, no hernia Genitourinary: no CVA tenderness Musculoskeletal: normal inspection, back normal, other - weakness bilral lower extremities Neurologic: normal inspection, alert, responsive, speech normal Psychiatric: normal inspection, mood/affect normal, depressed affect Skin: normal inspection, normal color, no rash Medical Decision Making Diagnostic Impression: Primary Impression: Alteration consciousness Additional Impressions: Dehydration Failure to thrive UTI (urinary tract infection) ER Course Patient presents emergency department today with decreased by mouth intake altered mental status. Differential considerations include CVA, dehydration, UTI, psychosis just to name a few.Given the severity of the patient's presentation I felt this is a highly complex patient. This patient required extensive workup. Patient laboratory workup was not impressive however given severity patient's presentation and her altered mental status and worsening symptoms with decreased oral intake for the patient require admission for treatment. We'll discuss his case with Dr. Paul for admission because he is the primary care physician for this patient.Patient's urine also shows evidence UTI. We'll start the patient on fluid as well as IV antibiotics. We' ll admit patient for IV antibiotic treatment. Labs Test 06/26/17 14:51 06/26/17 16:04 White Blood Count 6.7 K/UL (4.8-10.8) Red Blood Count 4.41 M/UL (4.20-5.40) Hemoglobin 13.0 G/DL (12.0-16.0) Hematocrit 40.5 % (37.0-47.0) Mean Corpuscular Volume 92 FL (80-99) Mean Corpuscular Hemoglobin 29.5 PG (27.0-31.0) Mean Corpuscular Hemoglobin Concent 32.1 G/DL (32.0-36.0) Red Cell Distribution Width 17.4 % (11.6-14.8) Platelet Count 275 K/UL (150-450) Mean Platelet Volume 6.2 FL (6.5-10.1) Neutrophils (%) (Auto) 67.5 % (45.0-75.0) Lymphocytes (%) (Auto) 25.3 % (20.0-45.0) Monocytes (%) (Auto) 5.1 % (1.0-10.0) Eosinophils (%) (Auto) 1.4 % (0.0-3.0) Basophils (%) (Auto) 0.7 % (0.0-2.0) Sodium Level 140 MMOL/L (136-145) Potassium Level 3.3 MMOL/L (3.5-5.1) Chloride Level 107 MMOL/L (98-107) Carbon Dioxide Level 25 MMOL/L (21-32) Anion Gap 8 mmol/L (5-15) Blood Urea Nitrogen 7 mg/dL (7-18) Creatinine 0.7 MG/DL (0.55-1.30) Estimat Glomerular Filtration Rate mL/min (>60) Glucose Level 111 MG/DL (74-106) Calcium Level 9.2 MG/DL (8.5-10.1) Total Bilirubin 0.3 MG/DL (0.2-1.0) Aspartate Amino Transf (AST/SGOT) 20 U/L (15-37) Alanine Aminotransferase (ALT/SGPT) 16 U/L (12-78) Alkaline Phosphatase 59 U/L (46-116) Total Creatine Kinase 25 U/L (26-308) Creatine Kinase MB 1.0 NG/ML (0.0-3.6) Creatine Kinase MB Relative Index 4.0 Troponin I 0.001 ng/mL (0.000-0.056) Total Protein 6.4 G/DL (6.4-8.2) Albumin 3.0 G/DL (3.4-5.0) Globulin 3.4 g/dL Albumin/Globulin Ratio 0.9 (1.0-2.7) Lipase 62 U/L (73-393) EKG Diagnostic Results Rate: normal Rhythm: NSR ST Segments: no acute changes Rhythm Strip Diag. Results EP Interpretation: yes Rate: 60s Rhythm: NSR, no PVC's Chest X-Ray Diagnostic Results Chest X-Ray Diagnostic Results : Chest X-Ray Ordered: Yes # of Views/Limited/Complete: 1 View Indication: Shortness of Breath EP Interpretation: Yes Interpretation: no consolidation, no effusion, no pneumothorax, no acute cardiopulmonary disease Impression: No acute disease Electronically Signed by: Electronically signed by Everardo Villalta MD Last Vital Signs Date Time Temp Pulse Resp B/P (MAP) Pulse Ox O2 Delivery O2 Flow Rate FiO2 06/26/17 13:48 98.2 65 18 122/59 98 Room Air Status: improved Disposition: ADMITTED INPATIENT Condition: Serious EVERARDO VILLALTA M.D. Jun 26, 2017 15:40
[2017-06-26 15:47] LABS: ALANINE AMINOTRANSFERASE 16 U/L (12-78); ALBUMIN/GLOBULIN RATIO 0.9 (1.0-2.7); ALKALINE PHOSPHATASE 59 U/L (46-116); ASPARTATE AMINO TRANSFERASE 20 U/L (15-37); BILIRUBIN,TOTAL 0.3 MG/DL (0.2-1.0); CREATINE KINASE 25 U/L (26-308)
[2017-06-26 16:33] LABS: APPEARANCE,URINE CLEAR; BILIRUBIN, URINE NEGATIVE (NEGATIVE); COLOR,URINE PALE YELLOW; GLUCOSE, URINE (UA) NEGATIVE (NEGATIVE); KETONES,URINE NEGATIVE (NEGATIVE); LEUKOCYTE ESTERASE ,URINE 3+ (NEGATIVE); NITRITE,URINE NEGATIVE (NEGATIVE); PH,URINE 5 (4.5-8.0); PROTEIN,URINE 1+ (NEGATIVE); UROBILINOGEN,URINE NORMAL MG/DL (0.0-1.0)
[2017-06-26] MEDS ORDERED: cefTRIAXone 1 GM in NS 55 ML IVPB ONE (16:45)
[2017-06-26] MEDS ORDERED: NS 55 ML IV ONE (16:48)
[2017-06-26] MEDS ORDERED: Morphine Sulfate 4mg/ml Inj IVP PRN ×2 (17:00→17:15)
[2017-06-26] MEDS ORDERED: Albuterol/Ipratropium 3ml neb HHN PRN ×2 (17:00→18:00)
[2017-06-26] MEDS ORDERED: Mylanta II UD 30ml ORAL PRN ×2 (17:00→17:15)
[2017-06-26] MEDS ORDERED: Milk of Magnesia 30ml Ud ORAL PRN ×2 (17:00→17:15)
[2017-06-26] MEDS ORDERED: Cefepime HCl 2 GM in D5W 110 ML IVPB SCH ×2 (17:00→20:00)
[2017-06-26] MEDS ORDERED: Miralax 17gm pkt ORAL PRN ×2 (17:00→17:15)
--- NOTE | 2017-06-26 17:00 | Diagnostic Imaging Report ---
Indication: COUGH, shortness of breath Technique: One view of the chest Comparison: 05/10/2017 Findings: There is atelectasis at the left lung base. Heart size is normal. Ureter lungs and pleural spaces are clear. There is a right chest port catheter again demonstrated Impression: Left basilar atelectasis. No acute process otherwise
[2017-06-26 17:06] VITALS: BP 136/57
[2017-06-26 18:30] VITALS: BP_SYST 151; BP_SYST 182; BP_DIAS 61; BP_DIAS 74
[2017-06-26 20:00] VITALS: BP 127/57
[2017-06-26] MEDS: Docusate 100mg cap ORAL SCH (20:14)
[2017-06-26] MEDS: Heparin 5000 units/ml inj SUBQ SCH (20:16)
[2017-06-26] MEDS ORDERED: Docusate 100mg cap ORAL SCH (21:00)
[2017-06-26] MEDS ORDERED: Heparin 5000 units/ml inj SUBQ SCH (22:00)
[2017-06-26] MEDS ORDERED: Zolpidem 5mg tab ORAL PRN (23:15)
[2017-06-27] VITALS: BP 141/58
[2017-06-27 04:00] VITALS: BP 132/60
[2017-06-27] MEDS: Heparin 5000 units/ml inj SUBQ SCH ×2 (05:31→14:00)
[2017-06-27 08:00] VITALS: BP 130/62
[2017-06-27] MEDS: Docusate 100mg cap ORAL SCH (08:24)
[2017-06-27 09:00] VITALS: BP 130/62
[2017-06-27] MEDS ORDERED: DULoxetine 30mg cap ORAL SCH ×2 (09:00)
[2017-06-27] MEDS ORDERED: Metoprolol Tartrate 12.5mg TAB ORAL SCH (09:00)
[2017-06-27] MEDS ORDERED: Donepezil 5mg Tab ORAL SCH ×2 (09:00)
[2017-06-27] MEDS ORDERED: Sertraline 50mg tab ORAL SCH ×2 (09:00)
[2017-06-27] MEDS ORDERED: Metoprolol 25mg tab ORAL SCH (09:00)
--- NOTE | 2017-06-27 09:13 | History and Physical ---
History of Present Illness General Date patient seen: Jun 27, 2017 Time patient seen: 09:05 Reason for Hospitalization: Generalized Weakness Present Illness HPI 76 y/o female with multiple medical issues, presented to ED from SNF with generalized weakness, reports of hallucinations while at the SNF. Workup in ED was significant for pyuria, pt was admitted for IV abx and supportive care. Pt today denies any urinary symptoms. She has baseline dementia and is unable to reliably report a history, she appears comfortable. Allergies: Coded Allergies: SULFONYLUREAS (Verified Allergy, Mild, 07/24/16) DIAZEPAM (Unverified Allergy, Unknown, 07/24/16) SULFA (SULFONAMIDE ANTIBIOTICS) (Unverified Allergy, Unknown, 07/24/16) Medication History Scheduled Amlodipine Besylate* (Amlodipine Besylate*), 5 MG ORAL DAILY, (Reported) Benztropine Mesylate (Cogentin 1mg*), 1 MG ORAL DAILY, (Reported) Donepezil Hcl* (Aricept*), 5 MG ORAL DAILY, (Reported) Gabapentin* (Gabapentin*), 300 MG ORAL BEDTIME, (Reported) Metoprolol Tartrate* (Metoprolol Tartrate*), 6.25 MG ORAL DAILY, (Reported) Pantoprazole* (Protonix*), 40 MG ORAL DAILY Risperidone* (Risperdal*), 0.25 MG ORAL DAILY, (Reported) Sertraline Hcl* (Zoloft*), 25 MG ORAL DAILY, (Reported) Miscellaneous Medications Acidophilus/Bulgaricus (Floranex Tablet), 1 EACH PO, (Reported) Discontinued Medications Duloxetine Hcl* (Cymbalta*), 60 MG ORAL DAILY, (Reported) Discontinued Reason: MD discontinued med Patient History Limited by: age, medical condition History Provided By: Patient Healthcare decision maker Resuscitation status Full Code Advanced Directive on File Past Medical/Surgical History Past Medical/Surgical History: (1) HTN (hypertension) (2) Gastrointestinal bleed (3) Dementia with psychosis (4) Pre-diabetes (5) Failure to thrive (6) S/P percutaneous endoscopic gastrostomy (PEG) tube placement Family History Family History: Patient reports no known family medical history. Social History Social History: (1) No significant social history Review of Systems ROS Narrative Unattainable given pt dementia Physical Exam Physical Exam Narrative General: alert, cooperative, no distress, appears stated age, not oriented to person/place Head: normocephalic, without obvious abnormality, atraumatic Eyes: conjunctivae/corneas clear. PERRL, EOM's intact Throat: lips, mucosa, and tongue normal. MMM Neck: supple, symmetrical, trachea midline, and no JVD Lungs: clear to auscultation bilaterally Heart: regular rate and rhythm, S1, S2 normal, no murmur, click, rub or gallop Abdomen: soft, non-tender, non-distended, bowel sounds normal; no masses or organomegaly Extremities: extremities normal, atraumatic, no cyanosis or edema Pulses: 2+ and symmetric Skin: skin color, texture, turgor normal; no rashes or lesions Neurologic: grossly normal, no focal deficits Last 24 Hour Vital Signs Date Time Temp Pulse Resp B/P (MAP) Pulse Ox O2 Delivery O2 Flow Rate FiO2 06/27/17 08:25 83 130/62 06/27/17 08:22 83 130/62 06/27/17 08:00 98.0 20 130/62 98 Room Air 06/27/17 04:00 97.0 83 20 132/60 98 Room Air 06/27/17 00:00 97.9 74 20 141/58 99 Room Air 06/26/17 20:00 98.2 69 20 127/57 98 Room Air 06/26/17 18:30 97.9 69 19 151/61 98 Room Air 06/26/17 17:08 72 20 136/57 100 Room Air 06/26/17 17:06 98.2 72 20 136/57 100 Room Air 06/26/17 13:48 98.2 65 18 122/59 98 Room Air Laboratory Tests Test 06/26/17 14:51 06/26/17 16:04 White Blood Count 6.7 K/UL (4.8-10.8) Red Blood Count 4.41 M/UL (4.20-5.40) Hemoglobin 13.0 G/DL (12.0-16.0) Hematocrit 40.5 % (37.0-47.0) Mean Corpuscular Volume 92 FL (80-99) Mean Corpuscular Hemoglobin 29.5 PG (27.0-31.0) Mean Corpuscular Hemoglobin Concent 32.1 G/DL (32.0-36.0) Red Cell Distribution Width 17.4 % (11.6-14.8) H Platelet Count 275 K/UL (150-450) Mean Platelet Volume 6.2 FL (6.5-10.1) L Neutrophils (%) (Auto) 67.5 % (45.0-75.0) Lymphocytes (%) (Auto) 25.3 % (20.0-45.0) Monocytes (%) (Auto) 5.1 % (1.0-10.0) Eosinophils (%) (Auto) 1.4 % (0.0-3.0) Basophils (%) (Auto) 0.7 % (0.0-2.0) Sodium Level 140 MMOL/L (136-145) Potassium Level 3.3 MMOL/L (3.5-5.1) L Chloride Level 107 MMOL/L (98-107) Carbon Dioxide Level 25 MMOL/L (21-32) Anion Gap 8 mmol/L (5-15) Blood Urea Nitrogen 7 mg/dL (7-18) Creatinine 0.7 MG/DL (0.55-1.30) Estimat Glomerular Filtration Rate mL/min (>60) Glucose Level 111 MG/DL (74-106) H Calcium Level 9.2 MG/DL (8.5-10.1) Total Bilirubin 0.3 MG/DL (0.2-1.0) Aspartate Amino Transf (AST/SGOT) 20 U/L (15-37) Alanine Aminotransferase (ALT/SGPT) 16 U/L (12-78) Alkaline Phosphatase 59 U/L (46-116) Total Creatine Kinase 25 U/L (26-308) L Creatine Kinase MB 1.0 NG/ML (0.0-3.6) Creatine Kinase MB Relative Index 4.0 Troponin I 0.001 ng/mL (0.000-0.056) Total Protein 6.4 G/DL (6.4-8.2) Albumin 3.0 G/DL (3.4-5.0) L Globulin 3.4 g/dL Albumin/Globulin Ratio 0.9 (1.0-2.7) L Lipase 62 U/L (73-393) L Urine Color Pale yellow Urine Appearance Clear Urine pH 5 (4.5-8.0) Urine Specific [place] 1.015 (1.005-1.035) Urine Protein 1+ (NEGATIVE) H Urine Glucose (UA) Negative (NEGATIVE) Urine Ketones Negative (NEGATIVE) Urine Occult Blood 1+ (NEGATIVE) H Urine Nitrite Negative (NEGATIVE) Urine Bilirubin Negative (NEGATIVE) Urine Urobilinogen Normal MG/DL (0.0-1.0) Urine Leukocyte Esterase 3+ (NEGATIVE) H Urine RBC 2-4 /HPF (0 - 2) H Urine WBC 10-15 /HPF (0 - 2) H Urine Squamous Epithelial Cells Few /LPF (NONE/OCC) Urine Amorphous Sediment Few /LPF (NONE) H Urine Bacteria Moderate /HPF (NONE) H Microbiology Date/Time Source Procedure Growth Status 06/26/17 16:04 Urine,Clean Catch Urine Culture - Preliminary Resulted Height (Feet): 5 Height (Inches): 6.00 Weight (Pounds): 220 Medications Current Medications Medications (Trade) Dose Ordered Sig/Balaji Route PRN Reason Start Time Stop Time Status Last Admin Dose Admin Acetaminophen (Tylenol) 650 mg Q4H PRN ORAL Mild Pain (Pain Scale 1-3) 06/26/17 17:15 07/26/17 16:59 Acetaminophen (Tylenol) 650 mg Q4H PRN ORAL T>100.5 06/26/17 17:15 07/26/17 16:59 Al Hydroxide/Mg Hydroxide (Mylanta II) 30 ml Q6H PRN ORAL dyspepsia 06/26/17 17:15 07/26/17 16:59 Albuterol/ Ipratropium (Albuterol/ Ipratropium) 3 ml Q6H PRN HHN Shortness of Breath 06/26/17 18:00 07/01/17 17:59 Amlodipine Besylate (Norvasc) 5 mg DAILY ORAL 06/27/17 09:00 07/27/17 08:59 06/27/17 08:22 Bisacodyl (Dulcolax) 10 mg HSPRN PRN RECTAL Constipation 06/26/17 17:15 07/26/17 16:59 Cefepime HCl 2 gm/ Dextrose 110 ml @ 220 mls/hr Q24H IVPB 06/26/17 20:00 07/03/17 19:59 06/26/17 20:13 Dextrose (Dextrose 50%) STAT PRN IV Hypoglycemia 06/26/17 17:15 07/26/17 16:59 Docusate Sodium (Colace) 100 mg EVERY 12 HOURS ORAL 06/26/17 21:00 07/26/17 20:59 06/27/17 08:24 Donepezil HCl (Aricept) 5 mg DAILY ORAL 06/27/17 09:00 07/27/17 08:59 06/27/17 08:25 Duloxetine HCl (Cymbalta) 60 mg DAILY ORAL 06/27/17 09:00 07/27/17 08:59 06/27/17 08:28 Gabapentin (Neurontin) 300 mg BEDTIME ORAL 06/26/17 21:00 07/26/17 20:59 06/26/17 20:14 Heparin Sodium (Porcine) (Heparin 5000 units/ml) 5,000 units EVERY 8 HOURS SUBQ 06/26/17 22:00 07/26/17 21:59 06/27/17 05:31 Magnesium Hydroxide (Mom) 30 ml HSPRN PRN ORAL Constipation 06/26/17 17:15 07/26/17 16:59 Metoprolol Tartrate (Lopressor) 6.25 mg DAILY ORAL 06/27/17 09:00 07/27/17 08:59 06/27/17 08:25 Morphine Sulfate (Morphine Sulfate) 4 mg Q4H PRN IVP Severe Pain (Pain Scale 7-10) 06/26/17 17:15 07/03/17 17:14 Ondansetron HCl (Zofran) 4 mg Q6H PRN IVP Nausea & Vomiting 06/26/17 17:15 07/26/17 16:59 Polyethylene Glycol (Miralax) 17 gm HSPRN PRN ORAL Constipation 06/26/17 17:15 07/26/17 16:59 Risperidone (RisperDAL) 0.25 mg DAILY ORAL 06/27/17 09:00 07/27/17 08:59 06/27/17 08:34 Sertraline HCl (Zoloft) 25 mg DAILY ORAL 06/27/17 09:00 07/27/17 08:59 06/27/17 08:24 Sodium Chloride 1,000 ml @ 75 mls/hr [id number] IVLG 06/26/17 18:00 07/26/17 17:59 06/27/17 05:29 Zolpidem Tartrate (Ambien) 5 mg HSPRN PRN ORAL Insomnia 06/26/17 23:15 07/03/17 23:14 06/27/17 00:02 Assessment/Plan Problem List: (1) Hypokalemia Assessment & Plan: Replete KCl, check magnesium ICD Codes: E87.6 - Hypokalemia SNOMED: 83028953 (2) UTI (urinary tract infection) Assessment & Plan: Cont IV abx f/u urine culture Consider ID evaluation ICD Codes: N39.0 - Urinary tract infection, site not specified SNOMED: 13338132 XIANG NOVAK Jun 27, 2017 09:13
[2017-06-27 11:44] VITALS: BP 132/67
[2017-06-27 11:47] LABS: ANION GAP 10 mmol/L (5-15); BLOOD UREA NITROGEN 7 mg/dL (7-18); CALCIUM 8.7 MG/DL (8.5-10.1); CARBON DIOXIDE 24 MMOL/L (21-32); CHLORIDE 112 MMOL/L (98-107); CREATININE 0.7 MG/DL (0.55-1.30); POTASSIUM 3.4 MMOL/L (3.5-5.1); SODIUM 146 MMOL/L (136-145)
[2017-06-27] MEDS ORDERED: CEFTIN250 MG/5 M PO (12:57)
[2017-06-27 15:24] VITALS: BP 118/58
--- NOTE | 2017-06-28 14:50 | Cardiology Report ---
APPROVED REPORT EKG Measurement Heart [id number] ID [id number] Normal sinus rhythm Low voltage QRS Borderline ECG
--- NOTE | 2017-06-28 14:50 | Cardiology Report ---
APPROVED REPORT EKG Measurement Heart [id number] Normal sinus rhythm Low voltage QRS Borderline ECG
--- NOTE | 2017-06-28 14:50 | Cardiology Report ---
APPROVED REPORT EKG Measurement Heart [id number] Normal sinus rhythm Low voltage QRS Borderline ECG
--- NOTE | 2017-07-01 09:58 | Discharge Summary ---
Discharge Summary Hospital Course Date of Admission Jun 26, 2017 at 15:44 Date of Discharge Jun 27, 2017 at 17:20 Admitting Diagnosis AMS Reason for Hospitalization: UTI HPI 76 years old female with multiple medical issues, presented to ED from SNF with generalized weakness, reports of hallucinations while at the SNF. Workup in ED was significant for pyuria, Patient was admitted for IV abx and supportive care. Hospital Course patient admitted started on empiric antibiotic IVF urine cx + E coli no urinary complaints K replaced, SNF meds resumed BP management with current regimen DVT prophayxlsi Bowel regimen pain management CXR with left base atelectasis, no other acute abnormalities pulse oximetry stable on RA AMS likely due to infection on underlying chronic dementia -back to baseline afebrile, no leukocytosis, no urinary complaints Due to rapid and unexpected improvement in patient condition, the patient was dc in 1 daY DISCHARGE DIAGNOSIS UTI with E coli hypokalemia Discharge Medications Continued Medications: Acidophilus/Bulgaricus (Floranex Tablet) 1 Each Tablet 1 EACH PO, TAB Amlodipine Besylate* (Amlodipine Besylate*) 5 Mg Tablet 5 MG ORAL DAILY, TAB Benztropine Mesylate (Cogentin 1mg*) 1 Mg Tablet 1 MG ORAL DAILY, TAB Cefuroxime Axetil (Ceftin) 250 Mg/5 Ml Susp.recon 500 MG PO BID for 5 Days, ML Donepezil Hcl* (Aricept*) 5 Mg Tablet 5 MG ORAL DAILY, TAB Gabapentin* (Gabapentin*) 300 Mg Capsule 300 MG ORAL BEDTIME, CAP Metoprolol Tartrate* (Metoprolol Tartrate*) 25 Mg Tablet 6.25 MG ORAL DAILY, TAB Pantoprazole* (Protonix*) 40 Mg Tablet.dr 40 MG ORAL DAILY for 30 Days, TAB Risperidone* (Risperdal*) 0.25 Mg Tablet 0.25 MG ORAL DAILY, #30 TAB 0 Refills Sertraline Hcl* (Zoloft*) 25 Mg Tablet 25 MG ORAL DAILY, TAB Discharge Condition Upon Discharge: stable Discharge Disposition Patient was discharged to SNF Discharge Diagnoses: Discharge Instructions Discharge Instructions Special Instructions I have been assigned to complete a D/C Summary on this account. I was not involved in the patient management Milla Luis NP ([place]te[place]) Jul 01, 2017 09:58
== END 2017-06-27 17:20 | DRG 690 ==
LOC: EDBD 13:46 → EMR 15:20 → 4E 15:44 → EMR 17:11 → EDBEDREQ 17:32
DX: N39.0 Urinary tract infection, site not specified (principal); E86.0 Dehydration; F03.90 Unspecified dementia, unspecified severity, without behavioral disturbance, psychotic disturbance, mood disturbance, and anxiety; E87.6 Hypokalemia; Z88.2 Allergy status to sulfonamides; Z88.8 Allergy status to other drugs, medicaments and biological substances; I10 Essential (primary) hypertension; R62.7 Adult failure to thrive; B96.20 Unspecified Escherichia coli [E. coli] as the cause of diseases classified elsewhere
CPT/HCPCS: 36415; 71010; 80048; 80053; 81003; 82550; 82553; 83690; 83735; 84484; 85025; 87086; 87181; 93005; 94664; 99285; J8499

== ENCOUNTER 2017-11-18 12:27 | Observation (INO) | payer MEDICARE, MEDICAID ==
[~2017-11-18] VITALS: Ht 172.7 cm; Wt 81.6 kg
[~2017-11-18 12:27] MED LIST changes: +CEFTIN250 MG/5 M PO; +COGENTIN1 MG ORAL
[2017-11-18 12:40] VITALS: BP 135/92
--- NOTE | 2017-11-18 13:13 | Emergency Room Report ---
History of Present Illness General Chief Complaint: Generalized Weakness Source: Patient, Medical Record Present Illness HPI 76-year-old female presents ED for evaluation. [facility] Patient noted to be repeatedly picking the skin on her face. Per EMS there is a rash to her face. Patient does not know how long its been there. States she has dementia. Denies any pain. States it is itchy. Denies fevers or chills. Per nursing staff patient also had some generalized weakness. Patient denies any weakness at this time. Denies fevers or chills. Denies cough. Denies chest pain or shortness of breath. No other aggravating relieving factors. Denies any other associated symptoms Allergies: Coded Allergies: SULFONYLUREAS (Verified Allergy, Mild, 07/24/16) DIAZEPAM (Unverified Allergy, Unknown, 07/24/16) SULFA (SULFONAMIDE ANTIBIOTICS) (Unverified Allergy, Unknown, 07/24/16) Patient History Past Medical History: HTN, GERD, dementia, other - multiple myeloma Past Surgical History: none Pertinent Family History: none Social History: Denies: smoking, alcohol use, drug use Last Menstrual Period: na Now: No Immunizations: UTD Reviewed Nursing Documentation: PMH: Agreed; PSxH: Agreed Nursing Documentation-PMH Past Medical History: No History, Except For Hx Cardiac Problems: Yes - cardiac arrhythmia Hx Hypertension: Yes Hx Asthma: No Hx Diabetes: Yes Hx Cancer: Yes - Multiple myeloma Hx Gastrointestinal Problems: Yes - GERD History Of Psychiatric Problem: Yes - Dementia, schizophrenia Hx Neurological Problems: Yes - neuropathy Hx Dementia: Yes - with psychosis Hx Paralysis: Yes Hx Dysphasia: Yes Review of Systems All Other Systems: negative except mentioned in HPI Physical Exam Vital Signs Date Time Temp Pulse Resp B/P (MAP) Pulse Ox O2 Delivery O2 Flow Rate FiO2 11/18/17 12:05 98.3 70 18 144/62 98 Room Air 98.2 Sp02 EP Interpretation: reviewed, normal General Appearance: no apparent distress, alert, GCS 15, non-toxic Head: normocephalic Eyes: bilateral eye normal inspection, bilateral eye PERRL ENT: hearing grossly normal, normal pharynx, no angioedema, normal voice Neck: full range of motion, supple/symm/no masses Respiratory: chest non-tender, lungs clear, normal breath sounds, speaking full sentences Cardiovascular #1: regular rate, rhythm, no edema Gastrointestinal: normal bowel sounds, non tender, soft, non-distended, no guarding, no rebound Rectal: deferred Genitourinary: no CVA tenderness Musculoskeletal: normal inspection Neurologic: other - dementia Psychiatric: other - dementia Skin: rash - dark discoloration of skin above R eyebrow, to chin. no induration /erythema. no discharge, other - multiple healing ulcers noted to bilateral buttocks. no fluctuance. no induration. no tissue exposed Lymphatic: normal inspection Medical Decision Making Diagnostic Impression: Primary Impression: Episode of generalized weakness Additional Impressions: Facial rash Lactic acid increased ER Course Hospital Course 76-year-old female presenting to ED with generalized weakness, rash to face Differential diagnoses include: Pneumonia, UTI, sepsis, dehydration Clinical course Patient placed on stretcher. On cardiac sonographer with stable vitals are ED course. After initial history and physical, I ordered labs, IV fluids, EKG, chest x-ray, blood cultures, UA. Labs - electrolytes ok, no leukocytosis, troponins negative, UA negative, lactic > 2 CXR - no acute process, some basilar atelectasis Rash on face either some hyperpigmentation versus scarring due to repeated picking Case discussed with Dr Limon and they agreed to admit patient to their service for further care and support I feel this is a highly complex case requiring extensive working including EKG/ Rhythm strip, Xray/CT/US, Blood/urine lab work, repeat exams while in ED, and administration of strong opiates/narcotics for pain control, admission to hospital or close patient follow up. Diagnosis - facial rash, lactic acidosis, generalized weakness Patient admitted to floor in serious condition Labs Test 11/18/17 13:34 11/18/17 13:50 11/18/17 16:30 11/19/17 05:30 White Blood Count 7.4 K/UL (4.8-10.8) 8.3 K/UL (4.8-10.8) Red Blood Count 4.65 M/UL (4.20-5.40) 4.43 M/UL (4.20-5.40) Hemoglobin 13.6 G/DL (12.0-16.0) 13.4 G/DL (12.0-16.0) Hematocrit 42.2 % (37.0-47.0) 39.5 % (37.0-47.0) Mean Corpuscular Volume 91 FL (80-99) 89 FL (80-99) Mean Corpuscular Hemoglobin 29.4 PG (27.0-31.0) 30.1 PG (27.0-31.0) Mean Corpuscular Hemoglobin Concent 32.3 G/DL (32.0-36.0) 33.8 G/DL (32.0-36.0) Red Cell Distribution Width 14.4 % (11.6-14.8) 14.2 % (11.6-14.8) Platelet Count 239 K/UL (150-450) 258 K/UL (150-450) Mean Platelet Volume 6.7 FL (6.5-10.1) 6.6 FL (6.5-10.1) Neutrophils (%) (Auto) 62.5 % (45.0-75.0) 65.2 % (45.0-75.0) Lymphocytes (%) (Auto) 29.7 % (20.0-45.0) 26.8 % (20.0-45.0) Monocytes (%) (Auto) 5.8 % (1.0-10.0) 5.6 % (1.0-10.0) Eosinophils (%) (Auto) 1.4 % (0.0-3.0) 1.2 % (0.0-3.0) Basophils (%) (Auto) 0.7 % (0.0-2.0) 1.2 % (0.0-2.0) Sodium Level 143 MMOL/L (136-145) 141 MMOL/L (136-145) Potassium Level 3.8 MMOL/L (3.5-5.1) 3.1 MMOL/L (3.5-5.1) Chloride Level 108 MMOL/L (98-107) 106 MMOL/L (98-107) Carbon Dioxide Level 25 MMOL/L (21-32) 25 MMOL/L (21-32) Anion Gap 10 mmol/L (5-15) 11 mmol/L (5-15) Blood Urea Nitrogen 10 mg/dL (7-18) 6 mg/dL (7-18) Creatinine 0.9 MG/DL (0.55-1.30) 0.7 MG/DL (0.55-1.30) Estimat Glomerular Filtration Rate mL/min (>60) mL/min (>60) Glucose Level 112 MG/DL (74-106) 114 MG/DL (74-106) Lactic Acid Level 2.20 mmol/L (0.66-2.22) 1.70 mmol/L (0.66-2.22) Calcium Level 9.1 MG/DL (8.5-10.1) 9.1 MG/DL (8.5-10.1) Total Bilirubin 0.2 MG/DL (0.2-1.0) Aspartate Amino Transf (AST/SGOT) 18 U/L (15-37) Alanine Aminotransferase (ALT/SGPT) 12 U/L (12-78) Alkaline Phosphatase 80 U/L (46-116) Total Protein 7.2 G/DL (6.4-8.2) Albumin 3.0 G/DL (3.4-5.0) Globulin 4.2 g/dL Albumin/Globulin Ratio 0.7 (1.0-2.7) Urine Color Pale yellow Urine Appearance Clear Urine pH 7 (4.5-8.0) Urine Specific [place] 1.010 (1.005-1.035) Urine Protein Negative (NEGATIVE) Urine Glucose (UA) Negative (NEGATIVE) Urine Ketones Negative (NEGATIVE) Urine Occult Blood Negative (NEGATIVE) Urine Nitrite Negative (NEGATIVE) Urine Bilirubin Negative (NEGATIVE) Urine Urobilinogen Normal MG/DL (0.0-1.0) Urine Leukocyte Esterase 3+ (NEGATIVE) Urine RBC 0-2 /HPF (0 - 2) Urine WBC 2-4 /HPF (0 - 2) Urine Squamous Epithelial Cells Few /LPF (NONE/OCC) Urine Bacteria Occasional /HPF (NONE) Erythrocyte Sedimentation Rate 40 MM/HR (0-30) Magnesium Level 1.9 MG/DL (1.8-2.4) C-Reactive Protein, Quantitative 1.1 mg/dL (0.00-0.90) Vitamin B12 Level 467 PG/ML (193-986) Chest X-Ray Diagnostic Results Chest X-Ray Diagnostic Results : Chest X-Ray Ordered: Yes # of Views/Limited/Complete: 1 View Indication: Other - weakness EP Interpretation: Yes Interpretation: no consolidation, no effusion, no pneumothorax, other - L basilar atelectasis Impression: Other - atelectasis Electronically Signed by: Electronically signed by Mil Felton MD Last Vital Signs Date Time Temp Pulse Resp B/P (MAP) Pulse Ox O2 Delivery O2 Flow Rate FiO2 11/18/17 12:40 72 20 135/92 100 Room Air 11/18/17 12:05 98.3 98.2 Status: improved Disposition: ADMITTED INPATIENT Condition: Serious MIL FELTON M.D. Nov 18, 2017 13:12
[2017-11-18] MEDS ORDERED: GABAPENTIN300 MG ORAL (13:31)
[2017-11-18] MEDS ORDERED: ARICEPT5 MG ORAL (13:31)
[2017-11-18] MEDS ORDERED: MULTIVITAMINS1 EAC8 ORAL (13:31)
[2017-11-18 13:45] LABS: BASOPHILS % (AUTO) 0.7 % (0.0-2.0); EOSINOPHILS % (AUTO) 1.4 % (0.0-3.0); HEMATOCRIT 42.2 % (37.0-47.0); HEMOGLOBIN 13.6 G/DL (12.0-16.0); LYMPHOCYTES % (AUTO) 29.7 % (20.0-45.0); MEAN CORPUSCULAR VOLUME 91 FL (80-99); MONOCYTES % (AUTO) 5.8 % (1.0-10.0); NEUTROPHILS % (AUTO) 62.5 % (45.0-75.0); PLATELET COUNT 239 K/UL (150-450); RED BLOOD COUNT 4.65 M/UL (4.20-5.40); RED CELL DISTRIBUTION WIDTH 14.4 % (11.6-14.8); WHITE BLOOD COUNT 7.4 K/UL (4.8-10.8)
[2017-11-18 14:06] LABS: APPEARANCE,URINE CLEAR; BILIRUBIN, URINE NEGATIVE (NEGATIVE); COLOR,URINE PALE YELLOW; GLUCOSE, URINE (UA) NEGATIVE (NEGATIVE); KETONES,URINE NEGATIVE (NEGATIVE); LEUKOCYTE ESTERASE ,URINE 3+ (NEGATIVE); NITRITE,URINE NEGATIVE (NEGATIVE); PH,URINE 7 (4.5-8.0); PROTEIN,URINE NEGATIVE (NEGATIVE); UROBILINOGEN,URINE NORMAL MG/DL (0.0-1.0)
[2017-11-18 14:07] LABS: ALANINE AMINOTRANSFERASE 12 U/L (12-78); ALBUMIN/GLOBULIN RATIO 0.7 (1.0-2.7); ALKALINE PHOSPHATASE 80 U/L (46-116); ANION GAP 10 mmol/L (5-15); ASPARTATE AMINO TRANSFERASE 18 U/L (15-37); BILIRUBIN,TOTAL 0.2 MG/DL (0.2-1.0); BLOOD UREA NITROGEN 10 mg/dL (7-18); CALCIUM 9.1 MG/DL (8.5-10.1); CARBON DIOXIDE 25 MMOL/L (21-32); CHLORIDE 108 MMOL/L (98-107); CREATININE 0.9 MG/DL (0.55-1.30); POTASSIUM 3.8 MMOL/L (3.5-5.1); SODIUM 143 MMOL/L (136-145)
--- NOTE | 2017-11-18 15:14 | Diagnostic Imaging Report ---
Indication: Pain and weakness Technique: One view of the chest Comparison: 06/26/2017 Findings: There is some atelectasis at the left lung base. There is a right jugular chest port catheter again demonstrated. The remainder the lungs and pleural spaces are clear. The heart size is normal Impression: Left basilar atelectasis No acute process otherwise
--- NOTE | 2017-11-18 16:28 | History and Physical ---
History of Present Illness General Date patient seen: Nov 18, 2017 Time patient seen: 16:28 Reason for Hospitalization: Generalized Weakness Present Illness HPI 76y/o female with pmh of HTN, dementia, "cancer", GERD who presents with generalized weakness and facial rash. Pt resides in SNF. She is a poor historian. Patient noted to be repeatedly picking the skin on her face. Per EMS there is a rash to her face. Patient does not know how long its been there. States she has dementia. Denies any pain. States it is itchy. Denies fevers or chills. Per nursing staff patient also had some generalized weakness. Patient denies any weakness at this time. Denies fevers or chills. Denies cough. Denies chest pain or shortness of breath. No other aggravating relieving factors. Denies any other associated symptoms. In ED, concern for elevated lactate >2, given IVFs w/ improvement in lactate. Allergies: Coded Allergies: SULFONYLUREAS (Verified Allergy, Mild, 07/24/16) DIAZEPAM (Unverified Allergy, Unknown, 07/24/16) SULFA (SULFONAMIDE ANTIBIOTICS) (Unverified Allergy, Unknown, 07/24/16) Medication History Scheduled Amlodipine Besylate* (Amlodipine Besylate*), 5 MG ORAL DAILY, (Reported) Donepezil Hcl* (Aricept*), 5 MG ORAL DAILY, (Reported) Gabapentin* (Gabapentin*), 300 MG ORAL BEDTIME, (Reported) Metoprolol Tartrate* (Metoprolol Tartrate*), 25 MG ORAL DAILY, (Reported) Multivitamin With Minerals (Multivitamins With Minerals*), 1 TAB ORAL DAILY, ( Reported) Pantoprazole* (Protonix*), 40 MG ORAL DAILY Risperidone* (Risperdal*), 0.25 MG ORAL DAILY, (Reported) Sertraline Hcl* (Zoloft*), 25 MG ORAL DAILY, (Reported) Discontinued Medications Acidophilus/Bulgaricus (Floranex Tablet), 1 EACH PO, (Reported) Discontinued Reason: Therapy completed Benztropine Mesylate (Cogentin 1mg*), 1 MG ORAL DAILY, (Reported) Discontinued Reason: Pt stopped taking med Cefuroxime Axetil (Ceftin), 500 MG PO BID, (Reported) Discontinued Reason: Therapy completed Patient History History Provided By: Patient, Medical Record, PMD Healthcare decision maker Resuscitation status Advanced Directive on File Past Medical/Surgical History Past Medical/Surgical History: (1) HTN (hypertension) (2) Dementia with psychosis (3) Pre-diabetes Family History Family History: Patient reports no known family medical history. Social History Social History: (1) lives at [facility] Review of Systems Constitutional: Reports: weakness Eye: Reports: no symptoms ENT: Reports: no symptoms Respiratory: Reports: no symptoms Cardiovascular: Reports: no symptoms Gastrointestinal: Reports: no symptoms Genitourinary: Reports: no symptoms Musculoskeletal: Reports: no symptoms Skin: Reports: no symptoms Psychiatric: Reports: no symptoms Neurological: Reports: no symptoms Endocrine: Reports: no symptoms Hematologic/Lymphatic: Reports: no symptoms Physical Exam Physical Exam Narrative General: alert, cooperative, no distress, appears stated age Head: normocephalic, without obvious abnormality, atraumatic Eyes: conjunctivae/corneas clear. PERRL, EOM's intact Throat: lips, mucosa, and tongue normal. MMM Neck: supple, symmetrical, trachea midline, and no JVD Lungs: clear to auscultation bilaterally Heart: regular rate and rhythm, S1, S2 normal, no murmur, click, rub or gallop Abdomen: soft, non-tender, non-distended, bowel sounds normal Extremities: extremities normal, atraumatic, no cyanosis or edema Pulses: 2+ and symmetric Skin: lower facial area w/ hyperpigmentation and raised lesions w/ excoriations , no erythema/warmth/TTP/drainage noted Neurologic: grossly normal, no focal deficits Last 24 Hour Vital Signs Date Time Temp Pulse Resp B/P (MAP) Pulse Ox O2 Delivery O2 Flow Rate FiO2 11/18/17 12:40 72 20 135/92 100 Room Air 11/18/17 12:05 98.3 70 18 144/62 98 Room Air 98.2 Laboratory Tests Test 11/18/17 13:34 11/18/17 13:50 White Blood Count 7.4 K/UL (4.8-10.8) Red Blood Count 4.65 M/UL (4.20-5.40) Hemoglobin 13.6 G/DL (12.0-16.0) Hematocrit 42.2 % (37.0-47.0) Mean Corpuscular Volume 91 FL (80-99) Mean Corpuscular Hemoglobin 29.4 PG (27.0-31.0) Mean Corpuscular Hemoglobin Concent 32.3 G/DL (32.0-36.0) Red Cell Distribution Width 14.4 % (11.6-14.8) Platelet Count 239 K/UL (150-450) Mean Platelet Volume 6.7 FL (6.5-10.1) Neutrophils (%) (Auto) 62.5 % (45.0-75.0) Lymphocytes (%) (Auto) 29.7 % (20.0-45.0) Monocytes (%) (Auto) 5.8 % (1.0-10.0) Eosinophils (%) (Auto) 1.4 % (0.0-3.0) Basophils (%) (Auto) 0.7 % (0.0-2.0) Sodium Level 143 MMOL/L (136-145) Potassium Level 3.8 MMOL/L (3.5-5.1) Chloride Level 108 MMOL/L (98-107) H Carbon Dioxide Level 25 MMOL/L (21-32) Anion Gap 10 mmol/L (5-15) Blood Urea Nitrogen 10 mg/dL (7-18) Creatinine 0.9 MG/DL (0.55-1.30) Estimat Glomerular Filtration Rate mL/min (>60) Glucose Level 112 MG/DL (74-106) H Lactic Acid Level 2.20 mmol/L (0.66-2.22) Calcium Level 9.1 MG/DL (8.5-10.1) Total Bilirubin 0.2 MG/DL (0.2-1.0) Aspartate Amino Transf (AST/SGOT) 18 U/L (15-37) Alanine Aminotransferase (ALT/SGPT) 12 U/L (12-78) Alkaline Phosphatase 80 U/L (46-116) Total Protein 7.2 G/DL (6.4-8.2) Albumin 3.0 G/DL (3.4-5.0) L Globulin 4.2 g/dL Albumin/Globulin Ratio 0.7 (1.0-2.7) L Urine Color Pale yellow Urine Appearance Clear Urine pH 7 (4.5-8.0) Urine Specific [place] 1.010 (1.005-1.035) Urine Protein Negative (NEGATIVE) Urine Glucose (UA) Negative (NEGATIVE) Urine Ketones Negative (NEGATIVE) Urine Occult Blood Negative (NEGATIVE) Urine Nitrite Negative (NEGATIVE) Urine Bilirubin Negative (NEGATIVE) Urine Urobilinogen Normal MG/DL (0.0-1.0) Urine Leukocyte Esterase 3+ (NEGATIVE) H Urine RBC 0-2 /HPF (0 - 2) Urine WBC 2-4 /HPF (0 - 2) Urine Squamous Epithelial Cells Few /LPF (NONE/OCC) Urine Bacteria Occasional /HPF (NONE) Height (Feet): 5 Height (Inches): 8.00 Weight (Pounds): 180 Medications Current Medications Medications (Trade) Dose Ordered Sig/Balaji Route PRN Reason Start Time Stop Time Status Last Admin Dose Admin Acetaminophen (Tylenol) 650 mg Q4H PRN ORAL Mild Pain (Pain Scale 1-3) 11/18/17 16:30 12/18/17 16:29 UNV Acetaminophen (Tylenol) 650 mg Q4H PRN ORAL fever 11/18/17 16:30 12/18/17 16:29 UNV Amlodipine Besylate (Norvasc) 5 mg DAILY ORAL 11/19/17 09:00 12/19/17 08:59 UNV Bisacodyl (Dulcolax) 10 mg HSPRN PRN RECTAL Constipation 11/18/17 16:30 12/18/17 16:29 UNV Dextrose (Dextrose 50%) STAT PRN IV Hypoglycemia 11/18/17 16:30 12/18/17 16:29 UNV Docusate Sodium (Colace) 100 mg EVERY 12 HOURS ORAL 11/18/17 21:00 12/18/17 20:59 UNV Donepezil HCl (Aricept) 5 mg DAILY ORAL 11/19/17 09:00 12/19/17 08:59 UNV Gabapentin (Neurontin) 300 mg BEDTIME ORAL 11/18/17 21:00 12/18/17 20:59 UNV Heparin Sodium (Porcine) (Heparin 5000 units/ml) 5,000 units EVERY 12 HOURS SUBQ 11/18/17 21:00 12/18/17 20:59 UNV Metoprolol Tartrate (Lopressor) 25 mg DAILY ORAL 11/19/17 09:00 12/19/17 08:59 UNV Multivitamins Therapeutic (Therapeutic Multivitamin) 1 ea DAILY ORAL 11/19/17 09:00 12/19/17 08:59 UNV Ondansetron HCl (Zofran) 4 mg Q6H PRN IVP Nausea & Vomiting 11/18/17 16:30 12/18/17 16:29 UNV Polyethylene Glycol (Miralax) 17 gm HSPRN PRN ORAL Constipation 11/18/17 16:30 12/18/17 16:29 UNV Sodium Chloride 1,000 ml @ 75 mls/hr [id number] IVLG 11/18/17 17:21 12/18/17 17:20 UNV Assessment/Plan Problem List: (1) Generalized weakness ICD Codes: R53.1 - Weakness SNOMED: 53226782 (2) Lactic acidosis ICD Codes: E87.2 - Acidosis SNOMED: 22929226 (3) Facial rash ICD Codes: R21 - Rash and other nonspecific skin eruption SNOMED: 529490676, 787707187 (4) HTN (hypertension) ICD Codes: I10 - Essential (primary) hypertension SNOMED: 98722592 (5) Dementia with psychosis ICD Codes: F03.91 - Unspecified dementia with behavioral disturbance SNOMED: 95890250, 67283275 (6) Pre-diabetes ICD Codes: R73.03 - Prediabetes SNOMED: 585894201 Status: stable Assessment/Plan Admit obs Cont IVFs Monitor lytes and replete Trend lactate Hold off abx at this time ID consulted F/u cultures Outpt derm consult Cont SNF meds Pain control, bowel regimen Supportive care DVT Prophylaxis: SCD, HSQ Code Status: Full Hospital Classification Declaration: Based on this initial evaluation, and depending on the patient's clinical course, I anticipate that this patient will require hospitalization for 1-2 days for generalized weakness, facial rash and close respiratory/hemodynamic monitoring. Disposition: Once the patient is stable to leave the hospital, I anticipate the patient will likely be discharged to the following environment: back to SNF I spent 70 minutes on this patient's case, and >50% was dedicated to counseling and/or care coordination. Discussed with patient/family, nursing staff, SW/CM, ID regarding clinical status, treatment course, and disposition planning. Time of note may not reflect time of encounter. Marva Nagy M.D. Nov 18, 2017 16:28
[2017-11-18] MEDS ORDERED: Miralax 17gm pkt ORAL PRN (16:30)
[2017-11-18 17:45] VITALS: BP 162/79
[2017-11-18 17:50] VITALS: BP 148/82
[2017-11-18 20:00] VITALS: BP 153/69
[2017-11-18] MEDS: Docusate 100mg cap ORAL SCH (21:00)
[2017-11-18] MEDS ORDERED: Donepezil 5mg Tab ORAL SCH (21:00)
[2017-11-18] MEDS ORDERED: Zolpidem 5mg tab ORAL PRN (21:45)
[2017-11-18] MEDS: Heparin 5000 units/ml inj SUBQ SCH (21:54)
--- NOTE | 2017-11-18 22:52 | Infectious Diseases Prog Note ---
Assessment/Plan Assessment/Plan Full consult dictated: A) 1) facial rash, doubt cellulitis 2) ? uti, ? sepsis, elevated lactic acid 3) pmh noted P) 1) check blood cultures and urine culture 2) derm evaluation of rash, if possible 3) antibiotics if indicated 4) thank you Subjective Allergies: Coded Allergies: SULFONYLUREAS (Verified Allergy, Mild, 07/24/16) DIAZEPAM (Unverified Allergy, Unknown, 07/24/16) SULFA (SULFONAMIDE ANTIBIOTICS) (Unverified Allergy, Unknown, 07/24/16) Objective Vital Signs Last 24 Hour Vital Signs Date Time Temp Pulse Resp B/P (MAP) Pulse Ox O2 Delivery O2 Flow Rate FiO2 11/18/17 20:33 Room Air 11/18/17 20:00 98.1 73 18 153/69 100 98.1 11/18/17 19:12 96.3 75 18 148/82 99 Room Air 96.3 11/18/17 17:50 148/82 11/18/17 17:45 96.3 75 18 162/79 99 96.3 11/18/17 12:40 72 20 135/92 100 Room Air 11/18/17 12:05 98.3 70 18 144/62 98 Room Air 98.2 Height (Feet): 5 Height (Inches): 8.00 Weight (Pounds): 180 Laboratory Tests Test 11/18/17 13:34 11/18/17 13:50 11/18/17 16:30 White Blood Count 7.4 K/UL (4.8-10.8) Red Blood Count 4.65 M/UL (4.20-5.40) Hemoglobin 13.6 G/DL (12.0-16.0) Hematocrit 42.2 % (37.0-47.0) Mean Corpuscular Volume 91 FL (80-99) Mean Corpuscular Hemoglobin 29.4 PG (27.0-31.0) Mean Corpuscular Hemoglobin Concent 32.3 G/DL (32.0-36.0) Red Cell Distribution Width 14.4 % (11.6-14.8) Platelet Count 239 K/UL (150-450) Mean Platelet Volume 6.7 FL (6.5-10.1) Neutrophils (%) (Auto) 62.5 % (45.0-75.0) Lymphocytes (%) (Auto) 29.7 % (20.0-45.0) Monocytes (%) (Auto) 5.8 % (1.0-10.0) Eosinophils (%) (Auto) 1.4 % (0.0-3.0) Basophils (%) (Auto) 0.7 % (0.0-2.0) Sodium Level 143 MMOL/L (136-145) Potassium Level 3.8 MMOL/L (3.5-5.1) Chloride Level 108 MMOL/L (98-107) H Carbon Dioxide Level 25 MMOL/L (21-32) Anion Gap 10 mmol/L (5-15) Blood Urea Nitrogen 10 mg/dL (7-18) Creatinine 0.9 MG/DL (0.55-1.30) Estimat Glomerular Filtration Rate mL/min (>60) Glucose Level 112 MG/DL (74-106) H Lactic Acid Level 2.20 mmol/L (0.66-2.22) 1.70 mmol/L (0.66-2.22) Calcium Level 9.1 MG/DL (8.5-10.1) Total Bilirubin 0.2 MG/DL (0.2-1.0) Aspartate Amino Transf (AST/SGOT) 18 U/L (15-37) Alanine Aminotransferase (ALT/SGPT) 12 U/L (12-78) Alkaline Phosphatase 80 U/L (46-116) Total Protein 7.2 G/DL (6.4-8.2) Albumin 3.0 G/DL (3.4-5.0) L Globulin 4.2 g/dL Albumin/Globulin Ratio 0.7 (1.0-2.7) L Urine Color Pale yellow Urine Appearance Clear Urine pH 7 (4.5-8.0) Urine Specific [place] 1.010 (1.005-1.035) Urine Protein Negative (NEGATIVE) Urine Glucose (UA) Negative (NEGATIVE) Urine Ketones Negative (NEGATIVE) Urine Occult Blood Negative (NEGATIVE) Urine Nitrite Negative (NEGATIVE) Urine Bilirubin Negative (NEGATIVE) Urine Urobilinogen Normal MG/DL (0.0-1.0) Urine Leukocyte Esterase 3+ (NEGATIVE) H Urine RBC 0-2 /HPF (0 - 2) Urine WBC 2-4 /HPF (0 - 2) Urine Squamous Epithelial Cells Few /LPF (NONE/OCC) Urine Bacteria Occasional /HPF (NONE) Current Medications Medications (Trade) Dose Ordered Sig/Balaji Route PRN Reason Start Time Stop Time Status Last Admin Dose Admin Acetaminophen (Tylenol) 650 mg Q4H PRN ORAL Mild Pain (Pain Scale 1-3) 11/18/17 16:30 12/18/17 16:29 Acetaminophen (Tylenol) 650 mg Q4H PRN ORAL fever 11/18/17 16:30 12/18/17 16:29 Amlodipine Besylate (Norvasc) 5 mg DAILY ORAL 11/19/17 09:00 12/19/17 08:59 Benztropine Mesylate (Cogentin) 1 mg DAILY ORAL 11/19/17 09:00 12/19/17 08:59 Bisacodyl (Dulcolax) 10 mg HSPRN PRN RECTAL Constipation 2nd Line Agent 11/18/17 16:30 12/18/17 16:29 Dextrose (Dextrose 50%) STAT PRN IV Hypoglycemia 11/18/17 17:00 12/18/17 16:59 Docusate Sodium (Colace) 100 mg EVERY 12 HOURS ORAL 11/18/17 21:00 12/18/17 20:59 Donepezil HCl (Aricept) 5 mg QHS ORAL 11/18/17 21:00 12/18/17 20:59 11/18/17 21:51 Gabapentin (Neurontin) 300 mg BEDTIME ORAL 11/18/17 21:00 12/18/17 20:59 11/18/17 21:51 Heparin Sodium (Porcine) (Heparin 5000 units/ml) 5,000 units EVERY 12 HOURS SUBQ 11/18/17 21:00 12/18/17 20:59 11/18/17 21:54 Metoprolol Tartrate (Lopressor) 25 mg DAILY ORAL 11/19/17 09:00 12/19/17 08:59 Multivitamins Therapeutic (Therapeutic Multivitamin) 1 ea DAILY ORAL 11/19/17 09:00 12/19/17 08:59 Ondansetron HCl (Zofran) 4 mg Q6H PRN IVP Nausea & Vomiting 11/18/17 17:00 12/18/17 16:59 Pantoprazole (Protonix) 40 mg DAILY ORAL 11/19/17 09:00 4/27/18 08:59 Polyethylene Glycol (Miralax) 17 gm HSPRN PRN ORAL Constipation 1st Line Agent 11/18/17 16:30 12/18/17 16:29 Risperidone (RisperDAL) 0.25 mg DAILY ORAL 11/19/17 09:00 12/19/17 08:59 Sertraline HCl (Zoloft) 25 mg DAILY ORAL 11/19/17 09:00 12/19/17 08:59 Sodium Chloride 1,000 ml @ 75 mls/hr [id number] IVLG 11/18/17 17:30 12/18/17 17:29 11/18/17 19:57 Zolpidem Tartrate (Ambien) 5 mg HSPRN PRN ORAL Insomnia 11/18/17 21:45 11/25/17 21:44 11/18/17 21:52 JOSELINE HUMPHREY 27, 2018 22:52
[2017-11-18 23:34] VITALS: BP 173/73
[2017-11-19 00:31] VITALS: BP 153/61
[2017-11-19 04:10] VITALS: BP 134/74
[2017-11-19 07:05] LABS: BASOPHILS % (AUTO) 1.2 % (0.0-2.0); EOSINOPHILS % (AUTO) 1.2 % (0.0-3.0); HEMATOCRIT 39.5 % (37.0-47.0); HEMOGLOBIN 13.4 G/DL (12.0-16.0); LYMPHOCYTES % (AUTO) 26.8 % (20.0-45.0); MEAN CORPUSCULAR VOLUME 89 FL (80-99); MONOCYTES % (AUTO) 5.6 % (1.0-10.0); NEUTROPHILS % (AUTO) 65.2 % (45.0-75.0); PLATELET COUNT 258 K/UL (150-450); RED BLOOD COUNT 4.43 M/UL (4.20-5.40); RED CELL DISTRIBUTION WIDTH 14.2 % (11.6-14.8); WHITE BLOOD COUNT 8.3 K/UL (4.8-10.8)
[2017-11-19 07:24] LABS: ANION GAP 11 mmol/L (5-15); BLOOD UREA NITROGEN 6 mg/dL (7-18); CALCIUM 9.1 MG/DL (8.5-10.1); CARBON DIOXIDE 25 MMOL/L (21-32); CHLORIDE 106 MMOL/L (98-107); CREATININE 0.7 MG/DL (0.55-1.30); POTASSIUM 3.1 MMOL/L (3.5-5.1); SODIUM 141 MMOL/L (136-145)
[2017-11-19 08:25] VITALS: BP 150/65
[2017-11-19] MEDS ORDERED: Sertraline 50mg tab ORAL SCH (09:00)
[2017-11-19] MEDS ORDERED: Metoprolol 25mg tab ORAL SCH (09:00)
[2017-11-19] MEDS ORDERED: Benztropine 1mg tab ORAL SCH (09:00)
[2017-11-19] MEDS ORDERED: Multivitamin w/Minerals tab ORAL SCH (09:00)
[2017-11-19] MEDS: Docusate 100mg cap ORAL SCH (09:39)
[2017-11-19] MEDS: Heparin 5000 units/ml inj SUBQ SCH (09:44)
--- NOTE | 2017-11-19 11:21 | Neurology Progress Note ---
Objective Physical Exam Last Vital Signs Date Time Temp Pulse Resp B/P (MAP) Pulse Ox O2 Delivery O2 Flow Rate FiO2 11/19/17 10:41 97.8 11/19/17 09:43 91 150/65 11/19/17 08:25 20 11/19/17 04:23 Room Air 11/19/17 04:10 100 Laboratory Tests Test 11/18/17 13:34 11/18/17 13:50 11/18/17 16:30 11/19/17 05:30 White Blood Count 7.4 K/UL (4.8-10.8) 8.3 K/UL (4.8-10.8) Red Blood Count 4.65 M/UL (4.20-5.40) 4.43 M/UL (4.20-5.40) Hemoglobin 13.6 G/DL (12.0-16.0) 13.4 G/DL (12.0-16.0) Hematocrit 42.2 % (37.0-47.0) 39.5 % (37.0-47.0) Mean Corpuscular Volume 91 FL (80-99) 89 FL (80-99) Mean Corpuscular Hemoglobin 29.4 PG (27.0-31.0) 30.1 PG (27.0-31.0) Mean Corpuscular Hemoglobin Concent 32.3 G/DL (32.0-36.0) 33.8 G/DL (32.0-36.0) Red Cell Distribution Width 14.4 % (11.6-14.8) 14.2 % (11.6-14.8) Platelet Count 239 K/UL (150-450) 258 K/UL (150-450) Mean Platelet Volume 6.7 FL (6.5-10.1) 6.6 FL (6.5-10.1) Neutrophils (%) (Auto) 62.5 % (45.0-75.0) 65.2 % (45.0-75.0) Lymphocytes (%) (Auto) 29.7 % (20.0-45.0) 26.8 % (20.0-45.0) Monocytes (%) (Auto) 5.8 % (1.0-10.0) 5.6 % (1.0-10.0) Eosinophils (%) (Auto) 1.4 % (0.0-3.0) 1.2 % (0.0-3.0) Basophils (%) (Auto) 0.7 % (0.0-2.0) 1.2 % (0.0-2.0) Sodium Level 143 MMOL/L (136-145) 141 MMOL/L (136-145) Potassium Level 3.8 MMOL/L (3.5-5.1) 3.1 MMOL/L (3.5-5.1) L Chloride Level 108 MMOL/L (98-107) H 106 MMOL/L (98-107) Carbon Dioxide Level 25 MMOL/L (21-32) 25 MMOL/L (21-32) Anion Gap 10 mmol/L (5-15) 11 mmol/L (5-15) Blood Urea Nitrogen 10 mg/dL (7-18) 6 mg/dL (7-18) L Creatinine 0.9 MG/DL (0.55-1.30) 0.7 MG/DL (0.55-1.30) Estimat Glomerular Filtration Rate mL/min (>60) mL/min (>60) Glucose Level 112 MG/DL (74-106) H 114 MG/DL (74-106) H Lactic Acid Level 2.20 mmol/L (0.66-2.22) 1.70 mmol/L (0.66-2.22) Calcium Level 9.1 MG/DL (8.5-10.1) 9.1 MG/DL (8.5-10.1) Total Bilirubin 0.2 MG/DL (0.2-1.0) Aspartate Amino Transf (AST/SGOT) 18 U/L (15-37) Alanine Aminotransferase (ALT/SGPT) 12 U/L (12-78) Alkaline Phosphatase 80 U/L (46-116) Total Protein 7.2 G/DL (6.4-8.2) Albumin 3.0 G/DL (3.4-5.0) L Globulin 4.2 g/dL Albumin/Globulin Ratio 0.7 (1.0-2.7) L Urine Color Pale yellow Urine Appearance Clear Urine pH 7 (4.5-8.0) Urine Specific [place] 1.010 (1.005-1.035) Urine Protein Negative (NEGATIVE) Urine Glucose (UA) Negative (NEGATIVE) Urine Ketones Negative (NEGATIVE) Urine Occult Blood Negative (NEGATIVE) Urine Nitrite Negative (NEGATIVE) Urine Bilirubin Negative (NEGATIVE) Urine Urobilinogen Normal MG/DL (0.0-1.0) Urine Leukocyte Esterase 3+ (NEGATIVE) H Urine RBC 0-2 /HPF (0 - 2) Urine WBC 2-4 /HPF (0 - 2) Urine Squamous Epithelial Cells Few /LPF (NONE/OCC) Urine Bacteria Occasional /HPF (NONE) Erythrocyte Sedimentation Rate Pending Magnesium Level 1.9 MG/DL (1.8-2.4) C-Reactive Protein, Quantitative Pending Vitamin B12 Level Pending Impression/Recommendations Recommendations #[id number] KAYLIN GRAFF Nov 19, 2017 11:21
[2017-11-19 11:45] VITALS: BP 156/71
--- NOTE | 2017-11-19 12:29 | Consultation ---
History of Present Illness General Date patient seen: Nov 18, 2017 Chief Complaint: Generalized Weakness Present Illness HPI 76-year-old female presents from retirement facility for generalized weakness. the pt has anxiety and is depressed. the pt is already on zoloft and risperdal. the pt has multiple complaints.t he pt is forgetful and has anxiety. Allergies: Coded Allergies: SULFONYLUREAS (Verified Allergy, Mild, 07/24/16) DIAZEPAM (Unverified Allergy, Unknown, 07/24/16) SULFA (SULFONAMIDE ANTIBIOTICS) (Unverified Allergy, Unknown, 07/24/16) Medication History Scheduled Amlodipine Besylate* (Amlodipine Besylate*), 5 MG ORAL DAILY, (Reported) Donepezil Hcl* (Aricept*), 5 MG ORAL DAILY, (Reported) Gabapentin* (Gabapentin*), 300 MG ORAL BEDTIME, (Reported) Metoprolol Tartrate* (Metoprolol Tartrate*), 25 MG ORAL DAILY, (Reported) Multivitamin With Minerals (Multivitamins With Minerals*), 1 TAB ORAL DAILY, ( Reported) Pantoprazole* (Protonix*), 40 MG ORAL DAILY Risperidone* (Risperdal*), 0.25 MG ORAL DAILY, (Reported) Sertraline Hcl* (Zoloft*), 25 MG ORAL DAILY, (Reported) Discontinued Medications Acidophilus/Bulgaricus (Floranex Tablet), 1 EACH PO, (Reported) Discontinued Reason: Therapy completed Benztropine Mesylate (Cogentin 1mg*), 1 MG ORAL DAILY, (Reported) Discontinued Reason: Pt stopped taking med Cefuroxime Axetil (Ceftin), 500 MG PO BID, (Reported) Discontinued Reason: Therapy completed Patient History Healthcare decision maker Resuscitation status Full Code Advanced Directive on File No Past Medical/Surgical History Past Medical/Surgical History: (1) Episode of generalized weakness (2) Generalized weakness (3) Facial rash (4) Right hand weakness (5) Dysphagia (6) Malfunction of gastrostomy tube (7) Hypergranulation surrounding G- Tube (8) Gastrointestinal bleed (9) HTN (hypertension) (10) Dementia with psychosis (11) lives at snf (12) Pre-diabetes (13) Blood in stool (14) Hypokalemia (15) Hypomagnesemia (16) Coffee ground emesis Review of Systems Psychiatric: Reports: prior hx, anxiety, depressed feelings, emotional problems Physical Exam General Appearance: no apparent distress, alert Neurologic: oriented x 3, responsive, depressed affect Last 24 Hour Vital Signs Date Time Temp Pulse Resp B/P (MAP) Pulse Ox O2 Delivery O2 Flow Rate FiO2 11/19/17 11:45 97.9 104 20 156/71 100 97.9 11/19/17 10:41 97.8 11/19/17 09:43 91 150/65 11/19/17 09:42 97.8 11/19/17 09:39 91 150/65 11/19/17 08:25 97.8 91 20 150/65 97.8 11/19/17 04:23 Room Air 11/19/17 04:10 97.5 89 20 134/74 100 Room Air 97.5 11/19/17 00:31 90 153/61 11/18/17 23:34 97.7 87 18 173/73 100 97.7 11/18/17 20:33 Room Air 11/18/17 20:00 98.1 73 18 153/69 100 98.1 11/18/17 19:12 96.3 75 18 148/82 99 Room Air 96.3 11/18/17 17:50 148/82 11/18/17 17:45 96.3 75 18 162/79 99 96.3 11/18/17 12:40 72 20 135/92 100 Room Air Intake and Output 11/18/17 11/19/17 19:00 07:00 Intake Total 1150 ml 1110 ml Balance 1150 ml 1110 ml Intake Oral 150 ml 360 ml IV Total 1000 ml 750 ml # Voids 1 5 # Bowel Movements 2 Laboratory Tests Test 11/18/17 13:34 11/18/17 13:50 11/18/17 16:30 11/19/17 05:30 White Blood Count 7.4 K/UL (4.8-10.8) 8.3 K/UL (4.8-10.8) Red Blood Count 4.65 M/UL (4.20-5.40) 4.43 M/UL (4.20-5.40) Hemoglobin 13.6 G/DL (12.0-16.0) 13.4 G/DL (12.0-16.0) Hematocrit 42.2 % (37.0-47.0) 39.5 % (37.0-47.0) Mean Corpuscular Volume 91 FL (80-99) 89 FL (80-99) Mean Corpuscular Hemoglobin 29.4 PG (27.0-31.0) 30.1 PG (27.0-31.0) Mean Corpuscular Hemoglobin Concent 32.3 G/DL (32.0-36.0) 33.8 G/DL (32.0-36.0) Red Cell Distribution Width 14.4 % (11.6-14.8) 14.2 % (11.6-14.8) Platelet Count 239 K/UL (150-450) 258 K/UL (150-450) Mean Platelet Volume 6.7 FL (6.5-10.1) 6.6 FL (6.5-10.1) Neutrophils (%) (Auto) 62.5 % (45.0-75.0) 65.2 % (45.0-75.0) Lymphocytes (%) (Auto) 29.7 % (20.0-45.0) 26.8 % (20.0-45.0) Monocytes (%) (Auto) 5.8 % (1.0-10.0) 5.6 % (1.0-10.0) Eosinophils (%) (Auto) 1.4 % (0.0-3.0) 1.2 % (0.0-3.0) Basophils (%) (Auto) 0.7 % (0.0-2.0) 1.2 % (0.0-2.0) Sodium Level 143 MMOL/L (136-145) 141 MMOL/L (136-145) Potassium Level 3.8 MMOL/L (3.5-5.1) 3.1 MMOL/L (3.5-5.1) L Chloride Level 108 MMOL/L (98-107) H 106 MMOL/L (98-107) Carbon Dioxide Level 25 MMOL/L (21-32) 25 MMOL/L (21-32) Anion Gap 10 mmol/L (5-15) 11 mmol/L (5-15) Blood Urea Nitrogen 10 mg/dL (7-18) 6 mg/dL (7-18) L Creatinine 0.9 MG/DL (0.55-1.30) 0.7 MG/DL (0.55-1.30) Estimat Glomerular Filtration Rate mL/min (>60) mL/min (>60) Glucose Level 112 MG/DL (74-106) H 114 MG/DL (74-106) H Lactic Acid Level 2.20 mmol/L (0.66-2.22) 1.70 mmol/L (0.66-2.22) Calcium Level 9.1 MG/DL (8.5-10.1) 9.1 MG/DL (8.5-10.1) Total Bilirubin 0.2 MG/DL (0.2-1.0) Aspartate Amino Transf (AST/SGOT) 18 U/L (15-37) Alanine Aminotransferase (ALT/SGPT) 12 U/L (12-78) Alkaline Phosphatase 80 U/L (46-116) Total Protein 7.2 G/DL (6.4-8.2) Albumin 3.0 G/DL (3.4-5.0) L Globulin 4.2 g/dL Albumin/Globulin Ratio 0.7 (1.0-2.7) L Urine Color Pale yellow Urine Appearance Clear Urine pH 7 (4.5-8.0) Urine Specific [place] 1.010 (1.005-1.035) Urine Protein Negative (NEGATIVE) Urine Glucose (UA) Negative (NEGATIVE) Urine Ketones Negative (NEGATIVE) Urine Occult Blood Negative (NEGATIVE) Urine Nitrite Negative (NEGATIVE) Urine Bilirubin Negative (NEGATIVE) Urine Urobilinogen Normal MG/DL (0.0-1.0) Urine Leukocyte Esterase 3+ (NEGATIVE) H Urine RBC 0-2 /HPF (0 - 2) Urine WBC 2-4 /HPF (0 - 2) Urine Squamous Epithelial Cells Few /LPF (NONE/OCC) Urine Bacteria Occasional /HPF (NONE) Erythrocyte Sedimentation Rate Pending Magnesium Level 1.9 MG/DL (1.8-2.4) C-Reactive Protein, Quantitative 1.1 mg/dL (0.00-0.90) H Vitamin B12 Level Pending Height (Feet): 5 Height (Inches): 8.00 Weight (Pounds): 180 Medications Current Medications Medications (Trade) Dose Ordered Sig/Balaji Route PRN Reason Start Time Stop Time Status Last Admin Dose Admin Acetaminophen (Tylenol) 650 mg Q4H PRN ORAL Mild Pain (Pain Scale 1-3) 11/18/17 16:30 12/18/17 16:29 11/19/17 09:42 Acetaminophen (Tylenol) 650 mg Q4H PRN ORAL fever 11/18/17 16:30 12/18/17 16:29 Amlodipine Besylate (Norvasc) 5 mg DAILY ORAL 11/19/17 09:00 12/19/17 08:59 11/19/17 09:39 Bisacodyl (Dulcolax) 10 mg HSPRN PRN RECTAL Constipation 2nd Line Agent 11/18/17 16:30 12/18/17 16:29 Dextrose (Dextrose 50%) STAT PRN IV Hypoglycemia 11/18/17 17:00 12/18/17 16:59 Docusate Sodium (Colace) 100 mg EVERY 12 HOURS ORAL 11/18/17 21:00 12/18/17 20:59 11/19/17 09:39 Gabapentin (Neurontin) 300 mg BEDTIME ORAL 11/18/17 21:00 12/18/17 20:59 11/18/17 21:51 Heparin Sodium (Porcine) (Heparin 5000 units/ml) 5,000 units EVERY 12 HOURS SUBQ 11/18/17 21:00 12/18/17 20:59 11/19/17 09:44 Metoprolol Tartrate (Lopressor) 25 mg DAILY ORAL 11/19/17 09:00 12/19/17 08:59 11/19/17 09:43 Multivitamins Therapeutic (Therapeutic Multivitamin) 1 ea DAILY ORAL 11/19/17 09:00 12/19/17 08:59 11/19/17 09:38 Naproxen (Naprosyn) 500 mg TWICE A DAY ORAL 11/19/17 12:00 12/19/17 11:59 Ondansetron HCl (Zofran) 4 mg Q6H PRN IVP Nausea & Vomiting 11/18/17 17:00 12/18/17 16:59 Pantoprazole (Protonix) 40 mg DAILY ORAL 11/19/17 09:00 12/19/17 08:59 11/19/17 09:39 Polyethylene Glycol (Miralax) 17 gm HSPRN PRN ORAL Constipation 1st Line Agent 11/18/17 16:30 12/18/17 16:29 Risperidone (RisperDAL) 0.25 mg DAILY ORAL 11/19/17 09:00 12/19/17 08:59 11/19/17 09:39 Sertraline HCl (Zoloft) 25 mg DAILY ORAL 11/19/17 09:00 12/19/17 08:59 11/19/17 09:40 Sodium Chloride 1,000 ml @ 75 mls/hr [id number] IVLG 11/18/17 17:30 12/18/17 17:29 11/18/17 19:57 Zolpidem Tartrate (Ambien) 5 mg HSPRN PRN ORAL Insomnia 11/18/17 21:45 11/25/17 21:44 11/18/17 21:52 Assessment/Plan Status: stable Assessment/Plan mdd anxiety -zoloft -Risperdal Sweetie Talbot M.D. Nov 19, 2017 12:29
[2017-11-19] MEDS: Naproxen 500mg tab ORAL SCH ×2 (12:44→17:00)
--- NOTE | 2017-11-19 15:12 | Diagnostic Imaging Report ---
Indications: Pain Technique: 3 views of the lumbar spine Comparison: None Findings: There is mild focal kyphosis of the upper lumbar spine due to disc degeneration. There is also minimal mid lumbar levoscoliotic deformity. The bony alignment is otherwise normal. The vertebral body heights are preserved. There is degenerative disc narrowing at L2-3 and L3-4. The remaining disc spaces are preserved. There is evidence of prior laminectomies of L2-L5, and possible bone grafting of the facets. The bones are osteoporotic no acute fractures. No dislocations. Pedicles are intact. Sacroiliac joint spaces are preserved. Sacral arches are preserved. The included extra spinal soft tissues are unremarkable Impression: No acute process Post surgical changes, as described Degenerative changes, as described
--- NOTE | 2017-11-19 15:14 | Diagnostic Imaging Report ---
Indication: Pain Technique: 3 views right hand Comparison: none Findings: The bones are osteoporotic with coarsening of the trabecular markings. There is mild degenerative narrowing of the second and third metacarpal phalangeal joints. No acute fractures. No dislocations. Impression: Findings as noted. No acute bony trauma
[2017-11-19 15:51] VITALS: BP 114/80
--- NOTE | 2017-11-19 16:11 | Discharge Instructions ---
Discharge Instructions Discharge Instructions Follow up with: pcp, dermatology, neurology in 1 week Diet: regular Resume Normal Activity?: Yes Activity: resume normal activities Special Instructions Follow-up with dermatology in 1 week, neurology in 1 week (Dr Calderon - ) For Congestive Heart Failure Reminder Report to your physician any weight gain of 5 pounds or more in one week. Marva Nagy M.D. Nov 19, 2017 16:11
--- NOTE | 2017-11-19 16:28 | Infectious Diseases Prog Note ---
Assessment/Plan Assessment/Plan Full consult dictated: A) 1) facial rash, doubt cellulitis 2) ? uti, ? sepsis, elevated lactic acid 3) pmh noted P) 1) check blood cultures and urine culture 2) derm evaluation of rash, if possible 3) antibiotics if indicated 4) d/w Dr. Durham Subjective Constitutional: Denies: fever HEENT: Denies: congestion Respiratory: Denies: shortness of breath Cardiovascular: Denies: chest pain Gastrointestinal/Abdominal: Denies: nausea, vomiting, diarrhea Genitourinary: Reports: other - no zhang Neurologic: Denies: headache Psychiatric: Reports: depression Allergies: Coded Allergies: SULFONYLUREAS (Verified Allergy, Mild, 07/24/16) DIAZEPAM (Unverified Allergy, Unknown, 07/24/16) SULFA (SULFONAMIDE ANTIBIOTICS) (Unverified Allergy, Unknown, 07/24/16) Objective Vital Signs Last 24 Hour Vital Signs Date Time Temp Pulse Resp B/P (MAP) Pulse Ox O2 Delivery O2 Flow Rate FiO2 11/19/17 15:51 98.0 78 20 114/80 98.0 11/19/17 13:43 97.9 11/19/17 12:44 97.9 11/19/17 11:45 97.9 104 20 156/71 100 97.9 11/19/17 10:41 97.8 11/19/17 09:43 91 150/65 11/19/17 09:42 97.8 11/19/17 09:39 91 150/65 11/19/17 08:25 97.8 91 20 150/65 97.8 11/19/17 04:23 Room Air 11/19/17 04:10 97.5 89 20 134/74 100 Room Air 97.5 11/19/17 00:31 90 153/61 11/18/17 23:34 97.7 87 18 173/73 100 97.7 11/18/17 20:33 Room Air 11/18/17 20:00 98.1 73 18 153/69 100 98.1 11/18/17 19:12 96.3 75 18 148/82 99 Room Air 96.3 11/18/17 17:50 148/82 11/18/17 17:45 96.3 75 18 162/79 99 96.3 Height (Feet): 5 Height (Inches): 8.00 Weight (Pounds): 180 HEENT: normocephalic, atraumatic, anicteric, mucous membranes moist, other - facial rash noted, no warmth or pain Respiratory/Chest: lungs clear, normal breath sounds, no respiratory distress Cardiovascular: normal rate, regular rhythm Abdomen: normal bowel sounds, soft, non tender, no organomegaly Laboratory Tests Test 11/18/17 16:30 11/19/17 05:30 Lactic Acid Level 1.70 mmol/L (0.66-2.22) White Blood Count 8.3 K/UL (4.8-10.8) Red Blood Count 4.43 M/UL (4.20-5.40) Hemoglobin 13.4 G/DL (12.0-16.0) Hematocrit 39.5 % (37.0-47.0) Mean Corpuscular Volume 89 FL (80-99) Mean Corpuscular Hemoglobin 30.1 PG (27.0-31.0) Mean Corpuscular Hemoglobin Concent 33.8 G/DL (32.0-36.0) Red Cell Distribution Width 14.2 % (11.6-14.8) Platelet Count 258 K/UL (150-450) Mean Platelet Volume 6.6 FL (6.5-10.1) Neutrophils (%) (Auto) 65.2 % (45.0-75.0) Lymphocytes (%) (Auto) 26.8 % (20.0-45.0) Monocytes (%) (Auto) 5.6 % (1.0-10.0) Eosinophils (%) (Auto) 1.2 % (0.0-3.0) Basophils (%) (Auto) 1.2 % (0.0-2.0) Erythrocyte Sedimentation Rate 40 MM/HR (0-30) H Sodium Level 141 MMOL/L (136-145) Potassium Level 3.1 MMOL/L (3.5-5.1) L Chloride Level 106 MMOL/L (98-107) Carbon Dioxide Level 25 MMOL/L (21-32) Anion Gap 11 mmol/L (5-15) Blood Urea Nitrogen 6 mg/dL (7-18) L Creatinine 0.7 MG/DL (0.55-1.30) Estimat Glomerular Filtration Rate mL/min (>60) Glucose Level 114 MG/DL (74-106) H Calcium Level 9.1 MG/DL (8.5-10.1) Magnesium Level 1.9 MG/DL (1.8-2.4) C-Reactive Protein, Quantitative 1.1 mg/dL (0.00-0.90) H Total Protein (PEP) Pending Albumin (PEP) Pending Globulin (PEP) Pending Albumin/Globulin Ratio Pending [id number] Pending [id number] Pending Beta Globulins Pending Beta Gamma Globulin Pending PEP Abnormal Protein Bands Pending Protein Electrophoresis Interpret Pending Vitamin B12 Level 467 PG/ML (193-986) Anti-Nuclear Antibody Screen Pending Current Medications Medications (Trade) Dose Ordered Sig/Balaji Route PRN Reason Start Time Stop Time Status Last Admin Dose Admin Acetaminophen (Tylenol) 650 mg Q4H PRN ORAL Mild Pain (Pain Scale 1-3) 11/18/17 16:30 12/18/17 16:29 11/19/17 09:42 Acetaminophen (Tylenol) 650 mg Q4H PRN ORAL fever 11/18/17 16:30 12/18/17 16:29 Amlodipine Besylate (Norvasc) 5 mg DAILY ORAL 11/19/17 09:00 12/19/17 08:59 11/19/17 09:39 Bisacodyl (Dulcolax) 10 mg HSPRN PRN RECTAL Constipation 2nd Line Agent 11/18/17 16:30 12/18/17 16:29 Dextrose (Dextrose 50%) STAT PRN IV Hypoglycemia 11/18/17 17:00 12/18/17 16:59 Docusate Sodium (Colace) 100 mg EVERY 12 HOURS ORAL 11/18/17 21:00 12/18/17 20:59 11/19/17 09:39 Gabapentin (Neurontin) 300 mg BEDTIME ORAL 11/18/17 21:00 12/18/17 20:59 11/18/17 21:51 Heparin Sodium (Porcine) (Heparin 5000 units/ml) 5,000 units EVERY 12 HOURS SUBQ 11/18/17 21:00 12/18/17 20:59 11/19/17 09:44 Metoprolol Tartrate (Lopressor) 25 mg DAILY ORAL 11/19/17 09:00 12/19/17 08:59 11/19/17 09:43 Multivitamins Therapeutic (Therapeutic Multivitamin) 1 ea DAILY ORAL 11/19/17 09:00 12/19/17 08:59 11/19/17 09:38 Naproxen (Naprosyn) 500 mg TWICE A DAY ORAL 11/19/17 12:00 12/19/17 11:59 11/19/17 12:44 Ondansetron HCl (Zofran) 4 mg Q6H PRN IVP Nausea & Vomiting 11/18/17 17:00 12/18/17 16:59 Pantoprazole (Protonix) 40 mg DAILY ORAL 11/19/17 09:00 12/19/17 08:59 11/19/17 09:39 Polyethylene Glycol (Miralax) 17 gm HSPRN PRN ORAL Constipation 1st Line Agent 11/18/17 16:30 12/18/17 16:29 Risperidone (RisperDAL) 0.5 mg BEDTIME ORAL 11/19/17 21:00 12/19/17 20:59 Sertraline HCl (Zoloft) 25 mg DAILY ORAL 11/19/17 09:00 12/19/17 08:59 11/19/17 09:40 Sodium Chloride 1,000 ml @ 75 mls/hr [id number] IVLG 11/18/17 17:30 12/18/17 17:29 11/18/17 19:57 Zolpidem Tartrate (Ambien) 5 mg HSPRN PRN ORAL Insomnia 11/18/17 21:45 11/25/17 21:44 11/18/17 21:52 JOSELINE HUMPHREY 28, 2018 16:28
[2017-11-19 19:21] VITALS: BP 113/47
--- NOTE | 2017-11-19 21:45 | Consultation ---
DATE OF CONSULTATION: 11/19/2017 NEUROLOGICAL CONSULTATION CONSULTING PHYSICIAN: Ari Dawn M.D. REQUESTING PHYSICIAN: Jordon Paul M.D. HISTORY OF PRESENT ILLNESS: This is a 76-year-old female, seen in neurological consultation to evaluate the recent onset of limited movement, weakness and pain in the right hand. The patient indicated that approximately a month ago, she noted that she cannot stretch up her fingers on her right hand. She has limited fist, right hand, with pain in her right hand, mainly joints of fingers, gradually increasing for the last couple weeks. The patient also informed me that she was diagnosed with multiple myeloma several years ago, and over the last couple of years, she has significant weakness in her both lower extremities, unable to ambulate, unable to stand up due to pain in her both feet, becoming bedridden. She was brought from intermediate facility when she noted generalized weakness, but also a rash on her face apparently after picking repeatedly the skin on her face, explaining this with itchiness. On arrival, her vital signs were stable, blood pressure 144/62 and temperature 98.3 degrees. Her imaging is limited. Her chest x-ray, which revealed atelectasis of left lung base. Right jugular chest port catheter demonstrated. Otherwise, no acute process noted. Lab work revealed normal CBC. Chemistry panel unremarkable. Urinalysis with 3+ leukocyte esterase. Since admission till present, there were no changes in her status. PAST MEDICAL HISTORY: The patient has a history of psychiatric disorder, multiple myeloma, polyneuropathy, history of hypertension, and history of dementia. History of GI bleed, pre-diabetes and degenerative joint disease. MEDICATIONS: Treatment prior to admission included amlodipine, donepezil, gabapentin, metoprolol, pantoprazole, Restoril and Zoloft. ALLERGIES: Sulfonylureas, diazepam and sulfonamide antibiotics. FAMILY HISTORY: Noncontributory. SOCIAL HISTORY: Resident of nursing facility. Denies alcohol or drug abuse. Nonsmoker. PHYSICAL EXAMINATION: GENERAL: Well developed and moderately obese elderly lady, not in acute distress, lying comfortably in bed, watching TV. VITAL SIGNS: Her vital signs now stable, blood pressure 150/65 and she is afebrile. HEENT: Head, normocephalic. No evidence of trauma. There is some discoloration in her nose and cheeks. No open wounds. She is edentulous. NECK: Supple. No meningeal signs. MUSCULOSKELETAL: There are both feet deformities. There is a right hand deformity. Peripheral pulses 1+ symmetric. MENTAL STATUS: She is alert and oriented times x2. Speech is fluent. Language intact. She is joking and remained quite coherent during conversation. CRANIAL NERVE II: Pupils, both responding to light and accommodation. Extraocular movements intact. No nystagmus. CRANIAL NERVE V: Normal corneal responses. CRANIAL NERVE VII: No asymmetry. CRANIAL NERVE VIII: Slight decrease in hearing. CRANIAL NERVE IX THROUGH XII: Tongue is in midline. MOTOR EXAMINATION: Revealed normal muscle tone. There is right hand tenderness predominantly in joints of the fingers and wrist. Right hand maintained somewhat flexed. Attempt to straighten up causes more pain. She was unable to perform complete handgrip. Limited strength in the right hand due to pain. Weakness in both lower extremities, 2/5 with the foot drop bilaterally, more pronounced on the left. DVT reflexes depressed bilaterally. SENSORY EXAMINATION: Normal to pinprick and light touch in both upper extremities, reduced in both feet. The patient is unable to sit and get up on her home. IMPRESSION: 1. Recent onset of right hand deformity, pain and weakness. This appears to represent a severe localized osteoarthritis. 2. Sensory motor polyneuropathy, predominantly both lower extremities. 3. History of multiple myeloma. 4. Mild cognitive impairment. 5. Hypertension. DISCUSSION: The patient has no clear evidence of neurological abnormality in her right hand. Deformity, pain, tenderness and weakness of right hand appears to be based on arthritic process. The cause of facial discoloration not clear. The patient denies scratching herself. With this constellation of symptoms, we will need to rule out a collagen vascular disease, SLE. Evidence of polyneuropathy diagnosed in the past, causing paraparesis. Status of her multiple myeloma, not clear. We will obtain plain x-rays of right hand, but also a lumbar spine, check serum protein electrophoresis, sedimentation rate, CRP, B12, vitamin D levels and ALISON. If necessary, we will proceed with further rheumatological and oncological evaluation. Thank you for allowing me to see this interesting patient in neurological consultation. Ari Gorinstein, M.D. DR: ELVIRA JOB#: [id number] CC:
--- NOTE | 2017-11-20 08:47 | Consultation ---
DATE OF CONSULTATION: 11/19/2017 NOTE: POOR AUDIO INFECTIOUS DISEASES CONSULTATION CONSULTING PHYSICIAN: Mis Nino M.D. ATTENDING PHYSICIAN: Jordon Paul M.D. REFERRING PHYSICIAN: Marva Nagy M.D. REASON FOR CONSULTATION: Possible UTI, facial cellulitis, and sepsis. The patient's chief complaint coming in to the hospital is weakness and lactic acidosis. HISTORY OF PRESENT ILLNESS: This is a 76-year-old female who comes into [facility] with main issue of weakness and was noted to have elevated lactic acid level. The patient admitted also for rash on her face and there is a question if the patient has cellulitis to the face and chin area and bilateral face area. The patient also had a positive urinalysis with 3+ leukocyte esterase, however with only 2 to 4 white blood cells. There was also a concern of possible UTI and because of the elevated lactic acid, possible sepsis. The patient has no fevers or leukocytosis. Infectious Diseases consultation requested for further recommendations for this patient. Case discussed with Dr. Durham and the patient. PAST MEDICAL HISTORY: The patient's past medical history includes the history of the following. The patient has past medical history of hypertension, history of dementia, questionable cancer, GERD, history of generalized weakness, facial rash she states that she has had for some time at least months, may be even longer. She states she picks at her skin on the face. She has degenerative joint disease. She has a history of multiple myeloma looks like per the records, history of cardiac arrhythmias. She does have history of diabetes, looks like also per the records, history of schizophrenia, neuropathy, history of psychosis in the past and also paralysis, unclear if it is focal paralysis or just generalized weakness, history dysphagia, neuropathy. ALLERGIES: Sulfa drugs and diazepam. FAMILY HISTORY: Noncontributory. Negative for exposure to tuberculosis or cancer. SOCIAL HISTORY: Negative for smoking, alcohol, or drug abuse. She resides in a SNF or ECF. REVIEW OF SYSTEMS: GENERAL: She has generalized weakness, but no focal weakness. HEAD AND NECK: No head pain, neck pain, thrush, or dysphagia. No neck stiffness or change in vision. No sinus tenderness. She has some fatigue. No fever chills, night sweats, or weight loss. CARDIAC: No chest pain or palpitations. GASTROINTESTINAL: No nausea, vomiting, or diarrhea. GENITOURINARY: No significant dysuria or frequency. No CVA tenderness. No Hines. PULMONARY: No congestion or shortness of breath. No hemoptysis or secretions. SKIN: She has a facial rash. She has no other rash noted. NEUROLOGIC: No seizures. PHYSICAL EXAMINATION: GENERAL: Alert, no acute distress. VITAL SIGNS: Pulse rate is 80, respiratory rate 20, blood pressure , and saturation 100%, temperature 98.0 degrees. No temperature spikes noted. HEAD AND NECK: Oral exam, no thrush. Eye exam, no icterus. Normocephalic. No facial droop. No neck stiffness. Neck is supple. She has some facial rash bilaterally in the lower part of the face and chin, but there is no warmth and redness. No cellulitis is obvious. No JVD. Normocephalic. HEART: Regular rate and rhythm. No gallops or murmur. ABDOMEN: Soft. Positive bowel sounds. Nontender. LUNGS: Clear bilaterally. No rhonchi or rales. SKIN: No other rash. MUSCULOSKELETAL: No effusion. Legs without cellulitis. PERIPHERAL VASCULAR: No cyanosis or gangrene. GENITOURINARY: No Hines. No CVA tenderness. LINES: Line sites without phlebitis. NEUROLOGIC: Intact. Nonfocal. She is alert and responsive, in no acute distress. Today, she was complaining of some numbness in the hand and was seen by Neurology also. LABORATORY AND DIAGNOSTIC DATA: White count is 8.3, hemoglobin 13.4, and platelet count of 40. Sedimentation rate is 40. Creatinine is 0.7. LFTs were noted. Urinalysis, 3+ leukocyte esterase with only 2-4 white blood cells. Urine culture and blood cultures are pending. She did have elevated lactic acid, but it is mildly elevated only at 2.2 most recent one was 1.7, which is under 2. Imaging studies, chest x-ray showed no evidence of pneumonia, just showed atelectasis. ASSESSMENT AND PLAN: 1. The patient has 3+ leukocyte esterase in urinalysis and only 2-4 white blood cells. She had no obvious symptoms of urinary tract infection. No fevers, chills or leukocytosis. Elevated lactic acid resolved on its own. I doubt the patient is septic. It is unclear if she has UTI, . With regards to the facial area looks like more of rash that is not infectious. At this time, there is no obvious cellulitis. No obvious fungal component either. At this time. I will check urine culture and blood cultures to rule out any sepsis or urinary tract infection. The patient should followup with Dermatology with regards to the facial rash. No antibiotics indicated at this time. We will give only antibiotics if indicated. Case was discussed with Dr. Durham. At this time, we will hold off antibiotics and followup on the cultures. 2. The patient has history of hypertension. Blood pressure treatment per Dr. Durham. 3. Questionable numbness of the hands, Neurology work in progress. 4. History of multiple myeloma. 5. History of cardiac arrhythmias. 6. Gastroesophageal reflux disease. 7. Dementia. 8. History of psychosis. 9. History of schizophrenia. 10. Pre-diabetes. 11. Neuropathy. 12. History of questionable paralysis. 13. Dysphagia. 14. Allergies to sulfa drugs and diazepam. 15. Social history is negative. 16. Family history is noncontributory. 17. MAR was noted. 18. Case discussed with RN. 19. Case discussed with Dr. Durham. 20. Continue treatment per primary consultants. Mis Nino M.D. DR: RAINE JOB#: [id number] CC:
== END 2017-11-19 20:50 ==
LOC: EDBD 12:27 → EMR 12:35 → EDBEDREQ 14:22 → INTOOBSV 14:59 → 4W 14:59 → EDBEDREQ 15:57 → 4W 17:22
DX: R53.1 Weakness (principal); R21 Rash and other nonspecific skin eruption; I10 Essential (primary) hypertension; K21.9 Gastro-esophageal reflux disease without esophagitis; F20.9 Schizophrenia, unspecified; J98.11 Atelectasis; E87.2 Acidosis; F41.9 Anxiety disorder, unspecified; F32.9 Major depressive disorder, single episode, unspecified; M81.0 Age-related osteoporosis without current pathological fracture; F03.91 Unspecified dementia, unspecified severity, with behavioral disturbance; R73.03 Prediabetes; M19.90 Unspecified osteoarthritis, unspecified site; M21.941 Unspecified acquired deformity of hand, right hand; G60.8 Other hereditary and idiopathic neuropathies; Z88.2 Allergy status to sulfonamides; Z88.8 Allergy status to other drugs, medicaments and biological substances; Z85.79 Personal history of other malignant neoplasms of lymphoid, hematopoietic and related tissues; M21.962 Unspecified acquired deformity of left lower leg; M21.961 Unspecified acquired deformity of right lower leg
CPT/HCPCS: 36415 ×2; 71045; 72020; 73130; 80048; 80053; 81003; 82607; 83605; 83735; 84165; 85025 ×2; 85651; 86039; 86140; 87040; 87081; 87086; 87181; 96360; 96361; 96372; 99285; G0378 ×2; J1644 ×2; J8499